=== PATIENT | female | born 1935 | race Caucasian/White ===

== ENCOUNTER 2017-08-17 11:30 | Inpatient (IN) | payer MEDICARE ==
[2017-08-17 12:38] VITALS: BMI 21.6
--- NOTE | 2017-08-19 15:05 | HP ---
DATE OF ADMISSION: 08/23/2017 HISTORY OF PRESENT ILLNESS: The patient is an 82-year-old female, who underwent in situ screw fixati on of a right femoral neck fracture approximately 18 months ago. She initially did well, but subsequ ently developed progressive right hip and groin pain, which is worse with ambulation. She has develo ped progressive signs of avascular necrosis and collapse of the femoral head with degenerative change s of the hip joint, and is admitted at this time for total hip replacement. PAST MEDICAL HISTORY: Please see the old chart. Patient had a previous aortic aneurysm stenting wit hin the past [address] Vasquez without further problems. She does have a history of COPD. She did obtain cardiac clearance from Dr. Carney prior to her aneurysm surgery and also obtained pulmonar y clearance from Dr. Mullins. CURRENT MEDICATIONS: Include Anoro Ellipta and albuterol. She does smoke a half-pack a day. ALLERGIES: She has no known allergies. She lives with her daughter. FAMILY HISTORY/SOCIAL HISTORY/REVIEW OF SYSTEMS: Otherwise unremarkable. PHYSICAL EXAMINATION: GENERAL: Reveals an elderly, thin, somewhat chronically ill-appearing female. HEENT: Unremarkable. NECK: Supple. CHEST: Clear. HEART: Regular rate and rhythm. ABDOMEN: Soft, nontender. RECTAL/GENITAL EXAMS: Deferred. EXTREMITIES: Pertinent findings related to the right hip. There is tenderness of the anterior hip. There is a healed lateral incision. There is a right antalgic gait with a walker. She has decrease d range of motion of the right hip and groin pain with internal rotation. Leg lengths are equal. Ne urovascular exam is intact. LABORATORY AND X-RAY FINDINGS: X-rays of the right hip reveal previous femoral neck fracture fixed w ith 3 cannulated screws. The fracture appears to be healed. There is collapse of the femoral head, which has been progressive with degenerative changes of the hip joint. IMPRESSION: 1. Avascular necrosis of right hip, status post right femoral neck fracture with secondary degenerat elen arthritis. 2. History of chronic obstructive pulmonary disease. 3. History of aortic aneurysm stenting. PLAN: Conversion of previous surgery to right total hip replacement with removal of previous hardwar e. The nature of the surgery, length of recovery, and potential complications such as infection, los s of motion, incomplete relief, neurovascular injury, thromboembolic phenomenon, leg length discrepan cy, possible transfusion, and need for revision have been discussed in detail with the patient and he r daughter.
[2017-08-23] MEDS ORDERED: Tranexamic Acid 1,000 MG/100 ML BAG ONE ×2 (10:09→15:10)
[2017-08-23] MEDS ORDERED: CEFAZOLIN/Water 2 GM/20 ML SYRINGE ONE (10:09)
[2017-08-23] MEDS ORDERED: Tranexamic Acid 1,000 MG in Sodium Chloride 0.9% 100 ML IVPB SCH ×2 (10:52→15:00)
[2017-08-23] MEDS ORDERED: Zolpidem Tartrate 5 MG TAB PO PRN ×2 (10:52→11:45)
[2017-08-23] MEDS ORDERED: Acetaminophen 325 MG TAB PO PRN (10:52)
[2017-08-23] MEDS ORDERED: traMADol HCl 50 MG TAB PO PRN ×4 (10:52→11:45)
[2017-08-23] MEDS ORDERED: PROVENTIL INHALER 6.7 G (200 INHALATIONS) INH PRN (10:52)
[2017-08-23] MEDS ORDERED: Fentanyl 100 MCG/2 ML VIAL SLOW IVP PRN (10:52)
[2017-08-23] MEDS ORDERED: Promethazine HCl 25 MG/ML VIAL SLOW IVP PRN (10:52)
[2017-08-23] MEDS ORDERED: Ondansetron HCl/PF 4 MG/2 ML Vial IVP PRN ×2 (10:52→11:45)
[2017-08-23] MEDS ORDERED: diphenhydrAMINE 25 MG CAP PO PRN ×2 (10:52→11:45)
[2017-08-23] MEDS ORDERED: Midazolam HCl 2 mg/2 ml Vial ONE (10:57)
[2017-08-23] MEDS ORDERED: Albuterol Sulfate 2.5 mg/3 ml Neb ONE (11:25)
[2017-08-23] MEDS ORDERED: Acetaminophen 1,000 MG in Premix Bag 1 BAG IVPB PRN (11:37)
[2017-08-23] MEDS ORDERED: Naloxone HCl 0.4 mg/ml Vial IV PRN (11:45)
[2017-08-23] MEDS ORDERED: diphenhydrAMINE 50 MG/ML VIAL IVP PRN (11:45)
[2017-08-23] MEDS ORDERED: Naloxone HCl 0.4 mg/ml Vial IVP PRN (11:45)
[2017-08-23] MEDS ORDERED: Promethazine HCl 25 MG/ML VIAL IM PRN (11:45)
[2017-08-23] MEDS ORDERED: diphenhydrAMINE 50 MG/ML VIAL IM PRN (11:45)
[2017-08-23] MEDS ORDERED: Fentanyl/Bupivacaine 250 ML in Premix Bag 1 BAG EPIDURAL SCH (11:45)
[2017-08-23] MEDS ORDERED: Bupivacaine 0.25% 10 ML VIAL EPIDURAL PRN (11:45)
[2017-08-23] MEDS ORDERED: Promethazine HCl 25 MG SUPP PR PRN (11:45)
[2017-08-23] MEDS ORDERED: Eucerin (Mineral Oil/Petrolatum,White) 30 gm Jar TOP PRN (11:45)
[2017-08-23] MEDS ORDERED: HYDROcodone/Acetaminophen 5/325 mg Tablet PO PRN ×4 (11:45→14:55)
[2017-08-23] MEDS: Ketorolac Tromethamine 30 MG/ML VIAL IVP SCH ×3 (12:00→23:29)
[2017-08-23] MEDS ORDERED: Bupivacaine 0.25% HCL 30 ML VIAL ONE (12:19)
[2017-08-23] MEDS ORDERED: Ketorolac Tromethamine 30 MG/ML VIAL IVP SCH (14:00)
[2017-08-23] MEDS ORDERED: Glycopyrrolate 0.2 MG/ML 5 ML SYRINGE ONE (14:44)
[2017-08-23] MEDS ORDERED: ePHEDrine/0.9% NaCl/PF SYRINGE 50 mg/10 ml ONE (14:44)
[2017-08-23] MEDS ORDERED: Ondansetron HCl/PF 4 MG/2 ML Vial ONE (14:44)
[2017-08-23] MEDS ORDERED: Propofol 200 MG/20 ML VIAL ONE (14:44)
[2017-08-23] MEDS ORDERED: Lidocaine 1% PF 5 ML VIAL ONE (14:44)
[2017-08-23] MEDS ORDERED: Dexamethasone 20 MG/5 ML VIAL ONE (14:44)
[2017-08-23] MEDS ORDERED: Fentanyl/Bupivacaine 250 ML EPIDURAL ONE (15:24)
[2017-08-23] MEDS: Sodium Chloride 0.9% 1,000 ML IV SCH ×3 (16:06→23:29)
--- NOTE | 2017-08-23 16:12 | RAD ---
TWO VIEWS RIGHT HIP: Date: 08-23-17 History: Post op total hip. Comparison: 10-27-16 FINDINGS: There has been interval post-surgical changes related to placement of right total hip prostheses. No hardware complication is seen. Surgical clips overlie the right aspect of the pelvis. There is a sten t overlying the region of the right iliac vessels. Subcutaneous emphysema is seen about the right hip . IMPRESSION: Post-surgical changes related to recent placement of right total hip prosthesis. POS: ESTELA
--- NOTE | 2017-08-23 16:42 | OP ---
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 OPERATIVE PROCEDURE: Conversion of previous surgery to hybrid right total hip arthroplasty (press fit acetabulum with a cemented femoral stem). SURGEON: Yomi Chan M.D. LIFE ENRICHMENT MANAGER: Chito Rojo PA-C. ANESTHESIA: General via endotracheal tube augmented with indwelling epidural. COMPONENTS USED: [employer] Trident PSL press-fit 50 mm acetabular shell with a 36 mm 10-degree polyethylene fixed bearing insert, and an Accolade 132-degree cemented size 5 hip stem. ESTIMATED BLOOD LOSS: 250 mL. FINDINGS: Impacted valgus malunion right hip with retained 7.3 stainless steel cannulated screws. DRAINS: None. SPECIMENS: None. COMPLICATIONS: None. COUNTS: Correct. INDICATIONS FOR SURGERY: Ms. Diehl is an 82-year-old white female that had a hip fracture treated with cannulated screw fixation approximately 18 months ago. She has had progressive right hip, groin and thigh pain amplified with standing and walking and elected to proceed with total hip arthroplasty as definitive treatment of her malunion. PROCEDURE IN DETAIL: After informed consent was obtained in the preoperative holding area, the patient was taken to the operative suite where general anesthesia was induced. The patient was then positioned in the lateral decubitus position. The hip was then prepped and draped in usual sterile fashion. The patient received preoperative antibiotics. Prior to incision, time-out was called and all members of the surgical team agreed upon site, surgeon, and patient. After this, a longitudinal incision was made directly over the trochanter, noted by palpation extending 2 fingerbreadths above and below the trochanter. The deeper subcutaneous layer was undermined with Bovie electrocautery. The iliotibial band was encountered and incised sharply and the plane below this was developed bluntly. A Charnley retractor was placed to hold this opened. The lateral aspect of the trochanter and the abductor muscles were encountered and then reflected anteriorly off the trochanter using Bovie electrocautery. Once this was completed, the anterior capsule was then encountered and identified and copious capsulotomy was carried out, exposing the femoral neck and head. Dislocation maneuver was then performed and an in situ provisional neck cut was then made using the oscillating saw. Attention was then turned to acetabular preparation and sequential reaming was carried out up to the appropriate diameter and a trial was then malleted into place with good firm resistance and no pullout. The permanent acetabular shell was then malleted squarely into place, as was the appropriate liner. Once completed , the wound was copiously irrigated and attention was then turned to femoral preparation. Flexion and external rotation was performed of the exposed thigh and femoral elevators were then placed at the proximal aspect of the wound. Canal finder was used to establish the length of the canal and sequential reaming was carried out, followed by broaching. Once the appropriate stability was established with the trial broaches with both flexion, extension and rotational stability, we did trial with neutral and 2 mm offset incremental necks. Once the appropriate size was decided upon, with good stability noted with flexion, extension, internal and external rotation and shuck being negative , we removed the femoral trial broach and malletted into place the permanent prosthesis with good firm fit, which was also stable to rotation. Once established, the canal was irrigated and prepped for cementation. After placing the cement restrictor, the canal was filled and pressurized for implantation. The implant was placed and held through the cureing process. excess cement was removed. Relocation maneuver was performed. Again, the hip felt very stable to flexion, extension, internal and external rotation. Leg lengths appeared near anatomic clinically and we were quite happy with prosthesis placement. Copious irrigation was then carried out through the entirety of the wound. Primary closure of the abductors was accomplished with interrupted #2 Vicryl [id number] stitches and the IT band was then closed with interrupted #2 Vicryl, oversewn with a #2 running barbed Quill stitch. Subcutaneous fascia was closed with running barbed Quill stitch and a subcuticular Monocryl barbed Quill stitch was used for skin closure and augmented with skin cement. A sterile dressing was applied. The procedure was terminated without any complication. All counts were correct. The patient was awakened in the operative suite and taken to the recovery room in stable condition. GINNA
[2017-08-23] MEDS: CEFAZOLIN/Water 2 GM/20 ML SYRINGE SLOW IVP SCH (18:07)
[2017-08-23] MEDS: Brimonidine Tartrate 0.2% Ophth Soln 5 ml Bottle L EYE SCH (21:17)
[2017-08-23] MEDS: Senokot S 8.6-50 MG TAB PO SCH (21:21)
[2017-08-23] MEDS: Timolol 0.5% Ophth Soln 5 ml Bottle L EYE SCH (21:22)
[2017-08-23] MEDS ORDERED: Vancomycin HCl 1 GM in Premix Bag 1 BAG IVPB SCH (23:00)
[2017-08-24] MEDS: CEFAZOLIN/Water 2 GM/20 ML SYRINGE SLOW IVP SCH (02:09)
[2017-08-24] MEDS: Ketorolac Tromethamine 30 MG/ML VIAL IVP SCH ×3 (05:12→18:34)
[2017-08-24 05:36] LABS: Hemoglobin 8.6 g/dL (12.0-16.0); Mean Corpuscular HGB CONC 32.3 g/dL (32.0-36.0); Mean Corpuscular Hemoglobin 31.5 pg (27.0-31.0); Mean Corpuscular Volume 97.6 fl (81.0-99.0); Mean Platelet Volume 7.1 fL (7.4-10.4); Platelet Count 256 thou/uL (130-400); RBC Distribution Width 14.7 % (11.5-14.5); Red Blood Cell (RBC) Count 2.73 mill/uL (4.20-5.40); White Blood Cell (WBC) Count 9.7 thou/uL (4.8-10.8)
--- NOTE | 2017-08-24 06:09 | CON ---
DATE OF CONSULTATION: 08/23/2017 CONSULTING PHYSICIAN: Dr. Yomi Chan. REASON FOR CONSULTATION: Medical management post right total hip revision. HISTORY OF PRESENT ILLNESS: Ms. Bautista is a pleasant 82-year-old female with history of COPD and skin cancer who fell and fractured her hip in 01/2016. At that time, she had a hemiarthroplasty repa ir, but has had nonunion and failure. She is admitted postop day 0 on 08/23/2017 from a right hip co nversion from millie to full arthroplasty. We are consulted postoperatively for medical management. She did well intraoperatively, no noted complications. Postoperatively, she slept well. No fevers o r chills. No nausea, vomiting, diarrhea, constipation. Pain is fairly well controlled. PAST MEDICAL HISTORY: 1. COPD. 2. Skin cancer. PAST SURGICAL HISTORY: 1. Right hip revision today 08/23/2017. 2. Aortic aneurysm stenting by Dr. Vasquez a few months ago. 3. Right hip repair after a fall with fracture in 01/2016. HOME MEDICATIONS: 1. Ibuprofen p.r.n. 2. Aspirin 81 mg daily. 3. Albuterol MDI 2 puffs p.o. q.4h. p.r.n. 4. Combigan 0.2/0.5% 1 drop to left eye b.i.d. 5. Anoro Ellipta 62.5/25 one puff q.a.m. 6. Cholecalciferol 1000 mg p.o. daily. 7. Calcium carbonate 600 mg daily. ALLERGIES: METOPROLOL. FAMILY HISTORY: Negative for carotid bruits, autoimmune dysfunction. SOCIAL HISTORY: Significant for about a half pack of cigarettes per day. She lives with her jordan lombardo. No history of alcohol use or IV drug use. REVIEW OF SYSTEMS: A 10 point review of systems was performed, negative for all systems except as pe r HPI. PHYSICAL EXAMINATION: VITAL SIGNS: Temperature 98.4, pulse 74, blood pressure 122/63, respiratory 16, satting 92% on room air. GENERAL: She is sleeping soundly, but easily arousable. She is in no acute distress. HEENT: Normocephalic, atraumatic. Pupils equal, reactive bilaterally. Mucous membranes moist. No visible lesion or thrush. NECK: Supple, without lymphadenopathy, JVD, thyromegaly. LUNGS: Clear. CARDIOVASCULAR: Normal S1, S2. No S3, S4. No murmurs or rubs. ABDOMEN: Soft, nontender, nondistended, no mass. No organomegaly. EXTREMITIES: No cyanosis or clubbing. Trace edema to bilateral extremities. SKIN: Warm, moist, and well perfused. Left hip incision dressing is clean, dry, and intact without strike through. MUSCULOSKELETAL: Otherwise unremarkable. Normal to inspection without any inflamed joints or palpab le effusions. NEUROLOGIC: Cranial nerves II-XII grossly intact. She has 5/5 strength and no focal deficits. Norm al speech pattern. LABORATORY DATA: On 08/17/2017 shows sodium 138, potassium 3.7, chloride 100, bicarbonate 26, BUN 14 , creatinine 0.86 and glucose 139, calcium 10.0. INR is 1.0. CBC showed a white count of 10.1, hemo globin 13.9, hematocrit 41.4, platelet count 349,000. Urinalysis unremarkable. ASSESSMENT AND PLAN: 1. Failure of a hemiarthroplasty, status post right hip revision and conversion from millie to total h ip arthroplasty. The patient is now postop day #1 technically today on 08/24/2017. Likely will go h ome later today. Medically, she is doing well. I will continue home medications and she can follow up with her regular doctor. Primary care physician is Dr. Khari Chatterjee. Clearing mobile phone salesperson, Dr. Nakia Carney. It Account Manager was Dr. Pete Mullins. Thank you very much for this consult. I will follow along with you for the duration of her stay.
[2017-08-24] MEDS: Sodium Chloride 0.9% 1,000 ML IV SCH (07:16)
[2017-08-24] MEDS: Senokot S 8.6-50 MG TAB PO SCH ×2 (08:30→20:40)
[2017-08-24] MEDS: Calcium Carbonate 600 MG TAB PO SCH (08:30)
[2017-08-24] MEDS: Ferrous Gluconate 324 MG TAB PO SCH ×2 (08:34→20:40)
[2017-08-24] MEDS: Multivitamin W/ Minerals 1 TAB PO SCH (08:34)
[2017-08-24] MEDS: Timolol 0.5% Ophth Soln 5 ml Bottle L EYE SCH ×3 (08:37→20:41)
[2017-08-24] MEDS: Brimonidine Tartrate 0.2% Ophth Soln 5 ml Bottle L EYE SCH ×2 (08:38→20:41)
[2017-08-25] MEDS: Ketorolac Tromethamine 30 MG/ML VIAL IVP SCH ×2 (00:10→05:23)
[2017-08-25] MEDS: Sodium Chloride 0.9% 1,000 ML IV SCH ×2 (01:17→12:50)
[2017-08-25 05:45] LABS: Hemoglobin 8.6 g/dL (12.0-16.0); Mean Corpuscular HGB CONC 32.4 g/dL (32.0-36.0); Mean Corpuscular Volume 98.5 fl (81.0-99.0); Mean Platelet Volume 7.8 fL (7.4-10.4); Platelet Count 244 thou/uL (130-400); RBC Distribution Width 14.9 % (11.5-14.5); White Blood Cell (WBC) Count 10.3 thou/uL (4.8-10.8)
[2017-08-25] MEDS: Multivitamin W/ Minerals 1 TAB PO SCH (09:34)
[2017-08-25] MEDS: Calcium Carbonate 600 MG TAB PO SCH (09:34)
[2017-08-25] MEDS: Ferrous Gluconate 324 MG TAB PO SCH (09:34)
[2017-08-25] MEDS: Brimonidine Tartrate 0.2% Ophth Soln 5 ml Bottle L EYE SCH (09:34)
[2017-08-25] MEDS: Senokot S 8.6-50 MG TAB PO SCH (09:35)
[2017-08-25] MEDS: Timolol 0.5% Ophth Soln 5 ml Bottle L EYE SCH (09:36)
--- NOTE | 2017-08-25 11:34 | PDOC.PN ---
- Subjective Encounter Start Date: 08/25/17 Encounter Start Time: 08:20 Subjective: breathing well, no wheezing -: is amb with PT - Objective MAR Reviewed: Yes Vital Signs & Weight: Vital Signs (12 hours) Temp Pulse Resp BP Pulse Ox 08/25/17 09:36 96 08/25/17 09:01 97.7 F 96 16 129/66 92 L 08/25/17 07:51 90 L 08/25/17 07:49 85 16 90 L 08/25/17 04:25 98.6 F 91 19 152/63 H 97 08/25/17 00:00 98.4 F 90 19 120/56 L Weight Admit Weight 122 lb Weight 122 lb I&O: 08/24/17 08/25/17 08/26/17 06:59 06:59 06:59 Intake Total 1800 1280 Output Total 1200 1350 Balance 600 -70 Result Diagrams: 08/25/17 05:17 Phys Exam - Physical Examination HEENT: PERRLA, moist MMs Neck: no JVD, supple Respiratory: no wheezing, no rales Cardiovascular: RRR, no significant murmur Gastrointestinal: soft, non-tender, positive bowel sounds Musculoskeletal: no edema, pulses present Neurological: non-focal, moves all 4 limbs Psychiatric: A&O x 3 Dx/Plan (1) COPD (chronic obstructive pulmonary disease) Status: Chronic Qualifiers: COPD type: chronic bronchitis Chronic bronchitis type: unspecified Qualified Code(s): J42 - Unspecified chronic bronchitis (2) Status post total hip replacement, right Code(s): Z96.641 - PRESENCE OF RIGHT ARTIFICIAL HIP JOINT Status: Acute (3) Postoperative anemia Code(s): D64.9 - ANEMIA, UNSPECIFIED Status: Acute (4) Osteoarthritis Code(s): M19.90 - UNSPECIFIED OSTEOARTHRITIS, UNSPECIFIED SITE Status: Chronic Qualifiers: Osteoarthritis location: multiple joints - Plan hemostable -: is likely going to rehab today per patient -: on asp bid for post hip surgery dvt prophylaxis -: pain control per ortho -: continue nebs, i.spirometry * . Review of Systems - Medications/Allergies Allergies/Adverse Reactions: Allergies Allergy/AdvReac Type Severity Reaction Status Date / Time metoprolol Allergy Intermediate LEGS Verified 03/26/17 09:57 SWELLED UP Medications: Current Medications Acetaminophen (Tylenol) 650 mg PO Q4H PRN PRN Reason: MARTEL/ T > 101F; Mild Pain (1-3) Hydrocodone Bitart/Acetaminophen (Pelsor 5/325) 1 tab PO Q4H PRN PRN Reason: Mild Pain 0-3 Hydrocodone Bitart/Acetaminophen (Pelsor 5/325) 2 tab PO Q4H PRN PRN Reason: For Moderate Pain 4-6 Albuterol Sulfate (Proventil Hfa) 2 puff INH Q4H PRN PRN Reason: SOB &/or Wheezing Albuterol/Ipratropium (Duoneb) 3 ml NEB Q6HR [facility] Last Admin: 08/25/17 07:49 Dose: 3 ml Aspirin (Aspirin Chewable) 81 mg PO BID [facility] Last Admin: 08/25/17 09:34 Dose: 81 mg Brimonidine Tartrate (Alphagan 0.2% Ophth Soln) 1 drop L EYE BID [facility] Last Admin: 08/25/17 09:34 Dose: 1 drp Bupivacaine HCl (Marcaine) 5 ml EPIDURAL ONE PRN PRN Reason: UNCONTROLLED PAIN Stop: 08/26/17 11:46 Calcium Carbonate (Caltrate) 600 mg PO DAILY [facility] Last Admin: 08/25/17 09:34 Dose: 600 mg Cholecalciferol (Vitamin D3) 1,000 units PO DAILY [facility] Last Admin: 08/25/17 09:34 Dose: 1,000 units Diphenhydramine HCl (Benadryl) 25 mg PO Q6H PRN PRN Reason: Itching Diphenhydramine HCl (Benadryl) 25 mg PO Q3H PRN PRN Reason: Itching Diphenhydramine HCl (Benadryl) 25 mg IM Q3H PRN PRN Reason: Itching Diphenhydramine HCl (Benadryl) 25 mg IVP Q3H PRN PRN Reason: Itching Ferrous Gluconate (Fergon) 324 mg PO BID [facility] Last Admin: 08/25/17 09:34 Dose: 324 mg Sodium Chloride (Normal Saline 0.9%) 1,000 mls @ 100 mls/hr IV .Q10H [facility] Last Admin: 08/25/17 01:17 Dose: Not Given Fentanyl Citrate 250 ml/ (Device) 250 mls @ 6 mls/hr EPIDURAL INF [facility] Last Admin: 08/25/17 07:25 Dose: 250 mls Iron/Minerals/Multivitamins (Theragran M) 1 tab PO DAILY [facility] Last Admin: 08/25/17 09:34 Dose: 1 tab Mineral Oil/White Petrolatum (Eucerin Cream) 0 gm TOP PRN PRN PRN Reason: Itching Naloxone HCl (Narcan) 0.2 mg IV Q5MIN PRN PRN Reason: RR <=8 OR OBTUNDED/UNAROUSABLE Naloxone HCl (Narcan) 0.1 mg IVP Q15MIN PRN PRN Reason: URINARY RETENTION Ondansetron HCl (Zofran) 4 mg IVP Q6H PRN PRN Reason: Nausea/Vomiting Last Admin: 08/24/17 15:12 Dose: 4 mg Ondansetron HCl (Zofran) 4 mg IVP Q6H PRN PRN Reason: Nausea/Vomiting Promethazine HCl (Phenergan) 12.5 mg SLOW IVP Q4H PRN PRN Reason: Nausea/Vomiting Promethazine HCl (Phenergan) 12.5 mg IM Q4H PRN PRN Reason: Nausea Promethazine HCl (Phenergan Suppository) 25 mg NH Q4H PRN PRN Reason: Nausea/Vomiting Senna/Docusate Sodium (Senokot S) 2 tab PO BID [facility] Last Admin: 08/25/17 09:35 Dose: 2 tab Sodium Chloride (Flush - Normal Saline) 10 ml IVF PRN PRN PRN Reason: Saline Flush Last Admin: 08/24/17 15:14 Dose: 10 ml Timolol Maleate (Timoptic 0.5% [facility]) 1 drop L EYE BID [facility] Last Admin: 08/25/17 09:36 Dose: Not Given Tramadol HCl (Ultram) 50 mg PO Q6H PRN PRN Reason: Mild Pain 1-3 Tramadol HCl (Ultram) 100 mg PO Q6H PRN PRN Reason: Moderate Pain 4-6 Zolpidem Tartrate (Ambien) 5 mg PO HSPRN PRN PRN Reason: Insomnia Zolpidem Tartrate (Ambien) 5 mg PO HSPRN PRN PRN Reason: Insomnia
[2017-08-25 12:52] VITALS: BP 149/74; TEMP 98.7
== END 2017-08-25 15:50 | DRG 470 ==
LOC: SURG A 08-23 08:37 → SJJU 08-23 17:25
PROVIDERS: ADMIT Orthopaedic Surgery; ATTEND Orthopaedic Surgery
PROC: 0SR9029 Replacement of Right Hip Joint with Metal on Polyethylene Synthetic Substitute, Cemented, Open Approach (ICD-10-PCS; principal; 2017-08-23)
PROC: 3E0T3BZ Introduction of Anesthetic Agent into Peripheral Nerves and Plexi, Percutaneous Approach (ICD-10-PCS; 2017-08-23)
DX: M87.251 Osteonecrosis due to previous trauma, right femur (principal); D64.9 Anemia, unspecified; S72.001P Fracture of unspecified part of neck of right femur, subsequent encounter for closed fracture with malunion; M16.7 Other unilateral secondary osteoarthritis of hip; I71.4 Abdominal aortic aneurysm, without rupture; Z95.818 Presence of other cardiac implants and grafts; F17.210 Nicotine dependence, cigarettes, uncomplicated; Z79.82 Long term (current) use of aspirin; Z88.8 Allergy status to other drugs, medicaments and biological substances; J42 Unspecified chronic bronchitis
CPT/HCPCS: 36415; 85027; 94640; C1713; C1776; G8978-GP-CL; G8979-GP-CI; G8987-GO-CK; G8988-GO-CI; J1100; J1885; J2001; J2250; J2405; J2704; J3010; J3370; J7611; J7620; S0020

== ENCOUNTER 2017-08-17 12:23 | Outpatient (CLI) | payer MEDICARE ==
[2017-08-17 14:26] LABS: Bilirubin Negative (Negative); Blood, Urine Trace (Negative); Clarity CLEAR (Clear); Glucose, Urine (Dipstick) Negative (Negative); Leukocyte Negative (Negative); Nitrite Negative (Negative); Protein, Urine (Dipstick) 30 mg/dL (Neg-Trace); Specific Gravity, Urine 1.019 (1.002-1.036); Urobilinogen 0.2 mg/dL (0.2-1.0)
[2017-08-17 14:28] LABS: Bacteria/HPF 1+ HPF (None Seen); Hyaline Casts/LPF 0-3 HYALINE CAST LPF (0-3 Hyaline); Pathc Cast-AUWi Flag 0.13 (0-2.49); WBC/HPF 0-3 HPF (0-3)
[2017-08-17 14:29] LABS: Hemoglobin 13.9 g/dL (12.0-16.0); Mean Corpuscular HGB CONC 33.5 g/dL (32.0-36.0); Mean Corpuscular Hemoglobin 32.7 pg (27.0-31.0); Mean Corpuscular Volume 97.4 fl (81.0-99.0); Mean Platelet Volume 7.6 fL (7.4-10.4); Platelet Count 349 thou/uL (130-400); RBC Distribution Width 14.7 % (11.5-14.5); Red Blood Cell (RBC) Count 4.25 mill/uL (4.20-5.40); White Blood Cell (WBC) Count 10.1 thou/uL (4.8-10.8)
[2017-08-17 14:32] LABS: Prothrombin Time 13.1 SEC (12.0-14.7)
[2017-08-17 14:39] LABS: Anion Gap 16 mmol/L (10-20); BUN (Urea Nitrogen) 14 mg/dL (9.8-20.1); Calc. Creatinine Clearance 0 mL/min (70-130); Carbon Dioxide 26 mmol/L (23-31); Chloride 100 mmol/L (98-107); Estimated GFR-MDRD 63; Glucose 139 mg/dL (83-110); Potassium 3.7 mmol/L (3.5-5.1); Sodium 138 mmol/L (136-145)
--- NOTE | 2017-08-19 00:50 | EKG ---
Test Reason : Blood Pressure : / mmHG Vent. Rate : 074 BPM Atrial Rate : 074 BPM P-R Int : 120 ms QRS Dur : 072 ms QT Int : 384 ms P-R-T Axes : 062 075 -07 degrees QTc Int : 426 ms Sinus rhythm with Premature atrial complexes Minimal voltage criteria for LVH, may be normal variant Abnormal ECG When compared with ECG of 26-MAR-2017 15:12, Premature atrial complexes are now Present T wave inversion now evident in Inferior leads Confirmed by RENO WILLIAMSON, SJesús ([id number]) on 08/19/2017 12:49:58 AM Referred By: NIKA Confirmed By:DR. Derian BOJORQUEZ MD
== END 2017-08-17 12:24 | disposition home or self-care (01) ==
LOC: LABBT 12:23
PROVIDERS: ATTEND Orthopaedic Surgery
DX: Z01.818 Encounter for other preprocedural examination (principal); M87.051 Idiopathic aseptic necrosis of right femur
CPT/HCPCS: 80048; 81001; 85027; 85610; 86850; 86900; 86901; 87081; 87086; 93005; 93010

== ENCOUNTER 2017-11-23 12:51 | Outpatient (CLI) | payer MEDICARE ==
--- NOTE | 2017-11-23 14:42 | CT ---
CT ANGIOGRAM ABDOMEN AND PELVIS WITH AND WITHOUT CONTRAST: HISTORY: Abdominal aortic aneurysm. Surgical repair in December 2016. COMPARISON: CT angiogram on 03/23/2017. TECHNIQUE: CT of the abdomen and pelvis was performed prior to and after the intravenous administration of contr ast, and 3D rendering was provided. FINDINGS: On the noncontrast examination, there is extensive atherosclerotic plaque throughout the aortoiliac s ystem. There is atrophy of the right kidney relative to the left with poor enhancement. The right k idney is likely being perfused by collateral vessels. No normal right renal artery is seen coming of f the post contrast study. There was adequate perfusion of the right kidney on the pre-treatment elia dy from December 2016. The aortobifemoral graft adequate excludes the aortic aneurysm. Using the same plane of reference fr om the prior examination, the aneurysmal sac is unchanged in size. No interval enlargement. There i s no evidence of an Endo leak. 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 The superior mesenteric artery is patent. There are no dilated loops of large or small bowel in the abdomen or pelvis. No significant free flu id. Mild spondylosis of the lumbar spine. The gallbladder is unremarkable. No hyperenhancing liver lesion. IMPRESSION: 1. Unchanged size of the excluded aortic aneurysm of the aortobifemoral graft. 2. Poor enhancement of the right renal artery with 1.5 cm of the proximal right renal artery not opa cified. Likely, the right renal artery is being fed by collateral vessels. 3. 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 4. No evidence of Endo leak. POS: ESTELA
[2017-11-23] MEDS ORDERED: Iopamidol 370 76% 100 ML VIAL ONE (14:49)
== END 2017-11-23 12:52 | disposition home or self-care (01) ==
LOC: CT 12:51
PROVIDERS: ATTEND Thoracic Surgery (Cardiothoracic Vascular Surgery)
DX: I71.4 Abdominal aortic aneurysm, without rupture (principal); I77.4 Celiac artery compression syndrome
CPT/HCPCS: 74174; 82565

== ENCOUNTER 2018-12-01 13:40 | Outpatient (CLI) | payer MEDICARE ==
[~2018-12-01 13:40] MED LIST: ISOVUE-370 76%-LOCM 1 ML ONE
--- NOTE | 2018-12-01 15:55 | CT ---
CONTRAST ENHANCED CTA ABDOMEN, PELVIS AND BOTH RIGHT AND LEFT RUNOFF: 12/01/18 2D and 3D reconstructed images performed on an independent 3D workstation. HISTORY: Abdominal aortic aneurysm repaired in 2017. Contrast enhanced CTA of abdomen and pelvis and bilateral runoffs demonstrates the lung bases to be u nremarkable. The liver and spleen are unremarkable. Numerous gallstones seen. The pancreas is unremarkable. Adrenal glands unremarkable. The right kidney is atrophied and the left kidney is unremarkable. The left renal artery is visualize d. Both renal arteries appear to be partially covered by the aortic stent graft. The aortic stent gra ft covers right and left renal arteries and appears to extend upwards all the way to the inferior asp ect of the superior mesenteric artery. The right renal artery appears to have occluded while the left renal artery, although partially obscured is patent. Flow is seen to the left kidney. The infrarenal abdominal aortic aneurysm is completely covered and no evidence of leakage seen. Flow is seen into the right and left common iliac arteries. The right common iliac artery appears to be pa tent. Flow is seen in the right external iliac artery and common femoral artery. Flow is seen predomi nantly into the right femora profunda. Some flow is seen into the proximal most aspect of the right superficial femoral artery. The right superficial femoral artery; however, is completely occluded. N umerous profunda collaterals reconstitute the right popliteal artery which is partially calcified. Th e right anterior tibial artery is small and occludes in the mid-calf. The right common peroneal arter y is patent although partially calcified. Flow seen in the right posterior tibial artery and right pe roneal arteries. LEFT LOWER EXTREMITY: Flow is seen from the patent and stented left common iliac artery into the left external iliac artery and left common femoral artery. Good flow is seen in the left femora profunda and superficial femora l arteries. The left SSA, although partially diseased is patent all the way to the left popliteal art lawson. Flow is seen in the left anterior tibial artery all the way to the dorsalis pedis. The left post erior tibial artery appears to be occluded. Flow is seen in the left peroneal artery all the way to t he left ankle. Some collaterals do reconstitute the left distal most aspect of the posterior tibial a rtery in the left foot. IMPRESSION: 1. Abdominal aortic stent graft in good position distally. The proximal aspect covers the right and left renal arteries. 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 No evidence of endovascular stent graft leak seen in the abdominal aortic a neurysm. 2. Complete occlusion of the right superficial femoral artery with right lower extremity poplite al reconstitution via right femora profunda collaterals. Two vessel runoff seen in the right lower ex tremity. 3. Left lower extremity demonstrates fairly good flow although some atherosclerotic plaque in th e left SFA. Flow however is seen from the stented left common iliac artery all the way to the left fo ot as described above. 4. No evidence of endovascular stent graft leak. POS: [facility]
== END 2018-12-01 13:41 | disposition home or self-care (01) ==
LOC: BICCT 13:40
PROVIDERS: ATTEND Thoracic Surgery (Cardiothoracic Vascular Surgery)
DX: I71.4 Abdominal aortic aneurysm, without rupture (principal); N28.0 Ischemia and infarction of kidney; I70.201 Unspecified atherosclerosis of native arteries of extremities, right leg; Z95.828 Presence of other vascular implants and grafts
CPT/HCPCS: 75635; 82565; Q9966

== ENCOUNTER 2018-12-06 13:21 | Outpatient (CLI) | payer MEDICARE ==
--- NOTE | 2018-12-06 13:39 | RAD ---
Exam: Chest 2 views HISTORY:Dyspnea Comparison: 06/17/2017 FINDINGS: Lungs: Hyperinflated lungs with diffuse interstitial and a mild superimposed reticulonodular componen t of opacification Cardiac silhouette:Mild enlargement Pulmonary vessels: Slightly engorgement, centrally Pleural Spaces: Minimal blunting of posterior costophrenic sulci, bilaterally Pneumothorax: None Vascular graft is seen overlying the abdominal aorta. Osseous abnormalities: None of acuity. IMPRESSION: 1. COPD 2. Diffuse interstitial reticulonodular opacities. Findings indicate chronic interstitial lung diseas e. An acute superimposed atypical inflammatory process is not excluded. Correlate with clinical assessment.
== END 2018-12-06 13:22 | disposition home or self-care (01) ==
LOC: RAD 13:21
PROVIDERS: ATTEND Internal Medicine
DX: R06.00 Dyspnea, unspecified (principal); R91.8 Other nonspecific abnormal finding of lung field; J44.9 Chronic obstructive pulmonary disease, unspecified
CPT/HCPCS: 71046

== ENCOUNTER 2019-07-13 15:25 | Inpatient (IN) | payer MEDICARE ==
[~2019-07-13 15:25] MED LIST changes: -ISOVUE-370 76%-LOCM 1 ML ONE; +Iopamidol-370 76% 500 ML 1 ML ONE
--- NOTE | 2019-07-13 15:57 | CT ---
CT head noncontrast HISTORY: Altered mental status. FINDINGS: There is no evidence of acute intracranial hemorrhage or infarct. Mild chronic ischemic sma ll vessel disease within the periventricular white matter of each cerebral hemisphere. 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 There is no mass effect or shif t of midline structures. Chronic sclerotic appearance of the left mastoid air cells. Other paranasal sinuses remain well aerated. IMPRESSION: Chronic-type findings as detailed above. No acute intracranial abnormalities are demonstr ated.
[2019-07-13 16:15] LABS: #Eosinphils 0.1 thou/uL (0.0-0.7); #Lymphocytes 1.8 thou/uL (1.20-3.40); #Monocytes 0.9 thou/uL (0.11-0.59); #Neutrophils 5.1 thou/uL (1.40-6.50); %Basophils 0.6 % (0.0-1.0); %Eosinophils 1.6 % (0.0-10.0); %Lymphocytes 22.1 % (21.0-51.0); %Neutrophils 64.7 % (42.0-75.0); Hemoglobin 14.4 g/dL (12.0-16.0); Mean Corpuscular HGB CONC 33.7 g/dL (32.0-36.0); Mean Corpuscular Hemoglobin 33.5 pg (27.0-31.0); Mean Corpuscular Volume 99.4 fL (78.0-98.0); Mean Platelet Volume 7.5 fL (7.4-10.4); Platelet Count 287 thou/uL (130-400); RBC Distribution Width 13.7 % (11.5-14.5); White Blood Cell (WBC) Count 7.9 thou/uL (4.8-10.8)
--- NOTE | 2019-07-13 16:27 | RAD ---
CHEST ONE VIEW: 07/13/19 HISTORY: Altered mental status. COMPARISON: Chest radiograph 07/06/19. FINDINGS: There are radiopacities projecting over the right shoulder likely extrinsic to the patient. Heart siz e is upper limits of normal. No airspace consolidation, pneumothorax or effusion. Mild aortic calcifi cations. IMPRESSION: No acute intrathoracic abnormality. POS: [facility]
[2019-07-13 16:28] LABS: PTT 30.4 SEC (22.9-36.1); Prothrombin Time 13.1 SEC (12.0-14.7)
[2019-07-13 16:30] LABS: ALT (SGPT) 16 U/L (8-55); AST (SGOT) 22 U/L (5-34); Albumin 4.2 g/dL (3.4-4.8); Alkaline Phosphatase 62 U/L (40-110); Anion Gap 14 mmol/L (10-20); BUN (Urea Nitrogen) 23 mg/dL (9.8-20.1); Bilirubin, Total 0.3 mg/dL (0.2-1.2); CK (CPK) 93 U/L (29-168); Calc. Creatinine Clearance 0 mL/min (70-130); Carbon Dioxide 24 mmol/L (23-31); Chloride 105 mmol/L (98-107); Estimated GFR-MDRD 60; Globulin 2.9 g/dL (2.4-3.5); Glucose 91 mg/dL (83-110); Magnesium 2.2 mg/dL (1.6-2.6); Potassium 4.3 mmol/L (3.5-5.1); Protein, Total 7.1 g/dL (6.0-8.3); Sodium 139 mmol/L (136-145)
--- NOTE | 2019-07-13 16:46 | CT ---
CTA CHEST AND ABDOMEN (AORTA) WITH IV CONTRAST AND 3D POSTPROCESSIN07/13/19 HISTORY: Abdominal aortic aneurysm with repair. Patient complains of fatigue and right sided facial droop. COMPARISON: Comparison made with exam of 12/01/18. The aortobifemoral graft is patent. The infrarenal abdominal aortic aneurysm is stable measuring abou t 4.1 x 4.3 cm. No intimal flap is seen to suggest aortic dissection. No pleural or pericardial effus ions are seen. There are emphysematous changes in the lung flower without pneumothoraces, focal areas of consolidation, or lung masses. The right kidney is atrophic. The proximal aspect of the aortoiliac stent covers the right and left r enal arteries. The left renal artery is visualized with good flow. There is good flow in the celiac a ccess and the SMA. The right renal artery appears occluded similar to the previous exam. No endoleak is seen in the abdominal aortic aneurysm/graft. No free air or free fluid is noted in the abdomen. IMPRESSION: 1. No evidence of aortic dissection. 2. Stable infrarenal abdominal aortic aneurysmal sac without evidence of endovascular stent toma t leak. POS: [facility]
[2019-07-13 18:47] LABS: Bilirubin Negative (Negative); Blood, Urine Negative (Negative); Clarity Clear (Clear); Glucose, Urine (Dipstick) Normal (Negative); Leukocyte Negative Leu/uL (Negative); Nitrite Negative (Negative); Protein, Urine (Dipstick) Negative (Neg-Trace); Urobilinogen Normal mg/dL (Less than 2)
[2019-07-13] MEDS ORDERED: hydrALAZINE 20 MG/ML VIAL SLOW IVP PRN (19:55)
[2019-07-13] MEDS ORDERED: Aspirin Chewable 81 MG TAB ONE (19:56)
[2019-07-13] MEDS ORDERED: Atenolol 50 MG TAB PO SCH (20:15)
[2019-07-14] MEDS: Atorvastatin Calcium 40 MG TAB PO SCH ×2 (00:43→22:03)
--- NOTE | 2019-07-14 01:52 | HP ---
REASON FOR ADMISSION: Left facial droop. HISTORY OF PRESENT ILLNESS: This is an 83-year-old female patient, who presented to the ER for left-sided facial droop and slurred speech. History going back to the night before her presentation. The patient has been feeling weak for the past couple of weeks and her primary care physician has been doing a workup and recently checked her thyroid function test in order to explain why she is generally weak, unable to even lift dishes, but yesterday the patient started having a facial droop and slurred speech, but no focal weakness in her upper or lower extremity, although she is generally weak on the right side more than on the left side. The patient did not lose consciousness. Did not have any fevers. Did not have any chills. In the emergency room, she continues to have a left facial droop, although improved a bit. Her daughter is at the bedside providing me with most of the information and she tells me that the patient has been losing weight and has been having early satiety. She eats a little bit and she gets full very quickly. PAST MEDICAL HISTORY: 1. High blood pressure. 2. COPD. 3. Skin cancer, status post treatment. 4. Aortic abdominal aneurysm, status post repair. SOCIAL HISTORY: She smokes 6-8 cigarettes a day. Drinks 1 gin and tonic on a daily basis, but is not dependent on alcohol. FAMILY HISTORY: Unknown. She is adopted. ALLERGIES: METOPROLOL. REVIEW OF SYSTEMS: Positive for weight loss. Other systems reviewed, except for the above-mentioned, found to be negative. PHYSICAL EXAMINATION: GENERAL: She is awake, alert, oriented, does not appear in distress. VITAL SIGNS: Her blood pressure is 200/90. She is afebrile. Her pulse ox is above 90%. HEENT: Head is nontraumatic, normocephalic. Pupils equal, reactive. Extraocular movements are intact. Nonicteric sclerae. Well injected conjunctivae. Oral mucosa normal. Nasal mucosa normal. NECK: Supple. No adenopathy. No murmur. Thyroid is not palpable. Trachea is midline. No supraclavicular adenopathy. HEART: S1 and S2 regular. No murmur. No gallop. No friction rubs noted. No displacement of PMI. LUNGS: Clear to auscultation bilaterally. No wheezes, rhonchi, or crackles. ABDOMEN: Bowel sounds are positive. Nontender abdomen. No hepatosplenomegaly. EXTREMITIES: No lower extremity edema. No cyanosis noted. NEUROLOGIC: She does have a left facial droop. She does have slurred speech. She does have motor weakness in her right upper and right lower extremity compared to the left side. She is able to lift against resistance, but it is slightly weaker than the left side. LABORATORY DATA: Her blood work shows WBC 7.9, hemoglobin 14.4, platelets of 287. Her INR is 1. Her sodium is 139, potassium 4.3, creatinine 0.9. Troponin less than 0.01. Urinalysis does not show any evidence of infection. TSH is 0.1905, T4 is 9.7. CT of the abdomen with IV contrast and CT of the chest shows no evidence for aortic dissection, stable infrarenal abdominal aortic aneurysm sac without evidence of endovascular stent graft leak. CT of the brain shows no evidence of acute intracranial hemorrhage. Mild chronic ischemic small vessel disease with periventricular white matter, old lacunar infarct in the anterior limb of the left internal capsule and left thalamus. Chest x-ray shows no acute intrathoracic abnormality. ASSESSMENT AND PLAN: This is an 83-year-old female patient, presenting with left facial droop and slurred speech compatible with a stroke. 1. Neurology: The patient will be admitted to stroke unit. She will be started on statin. We will consult Neurology to undergo an MRI of the brain, carotid Doppler, and echocardiogram. 2. GI: The patient has been losing weight and experiencing early satiety. I consulted Gastroenterology and I am planning on contacting the radiologist to see if he can re-read the CT of the abdomen and focus on the internal organs since it was primarily done for the vasculature, but I will see if he can look into the stomach and intestines trying to explain why she has this early satiety. 3. Endocrinology: The patient does have low TSH, but normal T4 and T3. I am checking a free T4. Also doing an ultrasound of the thyroid. 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 Based on the studies, we will see what we need to do about that. 4. For deep venous thrombosis prophylaxis, she will be on Lovenox. 5. For chronic obstructive pulmonary disease, she will be on nebulizer treatment. 6. I did discuss the code status with her and with her daughter and she wishes to be a full code. Job ID: [id number]
[2019-07-14 02:43] VITALS: BMI 24.0
--- NOTE | 2019-07-14 08:39 | ULT ---
US Carotid Doppler STANDARD History: Facial droop Comparison: None. Findings: Real-time grayscale, color, and spectral analysis of the extracranial carotid and vertebral arteries was performed. No elevated peak systolic velocities within the internal carotid arteries. Antegrade flow both verteb ral arteries. Moderate atherosclerotic plaque both proximal internal carotid arteries. Impression: No hemodynamically significant stenosis.
--- NOTE | 2019-07-14 09:35 | ULT ---
THYROID ULTRASOUND: Date: 07/14/19 HISTORY: Low thyroid function tests. FINDINGS: Real-time imaging of the right and left lobes of the gland were performed. Right lobe measures 1.6 x 1.8 x 4.5 cm. Left lobe measures 1.9 x 2.0 x 4.2 cm. Within the right lobe, more in the upper pole re gion, is a complex cystic lesion measuring 8.0 x 12.0 mm. There are other smaller complex cysts also identified. On the right side, there is a complex cyst measuring 1.0 x 2.2 cm. Margins are smooth. Le ramandeep is wider than tall. No microcalcifications. This lesion would correspond to a TI-RADS 2 lesion. No FNA recommended. IMPRESSION: Bilateral complex cystic thyroid nodules. POS: [facility]
--- NOTE | 2019-07-14 10:05 | MRI ---
MRI BRAIN NONCONTRAST: DATE: 07/14/2019 HISTORY: 83-year-old female with acute stroke symptoms. Altered mental status. FINDINGS: There is no obstructive hydrocephalus. There is no midline shift or any other evidence of mass effect . There is no extra-axial fluid collection. There is a moderate degree of T2-hyperintensities in the cerebral white matter consistent with chronic ischemic white matter changes due to microvascular atherosclerosis. There is no evidence of recent hemorrhage. There is a small patchy faint slightly less than one center focus of mild T2 hyperintensity in the right side of the upper compa with restric alison diffusion. There are multiple small-tiny old lacunar infarctions in bilateral basal ganglia and left thalamus. IMPRESSION: 1) acute or subacute lacunar infarction in the right compa. 2) multiple old lacunar infarctions in bilateral basal ganglia and left thalamus. 3) moderate chronic ischemic white matter changes. 4) no acute hemorrhage or mass effect.
--- NOTE | 2019-07-14 10:26 | PDOC.HOSPP ---
- Subjective Subjective: She looks better today, but continues to have a facial droop. - Objective Vital Signs & Weight: Vital Signs (12 hours) Temp Pulse Resp BP Pulse Ox 07/14/19 07:46 98 F 62 16 181/74 H 93 L 07/14/19 03:56 98 F 53 L 16 138/63 94 L Weight Weight 135 lb 12.8 oz I&O: 07/13/19 07/14/19 07/15/19 06:59 06:59 06:59 Intake Total 300 Balance 300 Result Diagrams: 07/13/19 15:55 07/13/19 15:55 Additional Labs: Accuchecks 07/13/19 15:41 POC Glucose 91 Hospitalist ROS - Medication Medications: Active Medications Generic Name Dose Route Start Last Admin Trade Name Freq PRN Reason Stop Dose Admin Atorvastatin Calcium 40 mg 07/13/19 21:00 07/14/19 00:43 Lipitor PO Not Given HS BRETT - Exam General Appearance: NAD, awake alert Eye: PERRL ENT: normocephalic atraumatic Neck: supple, symmetric Heart: RRR, no murmur Respiratory: CTAB, no wheezes, no rales Gastrointestinal: soft, non-tender, non-distended Extremities: no cyanosis, no clubbing Neurological: speech deficit (she does have a left facial droop, she does have a slurred speech.) Musculoskeletal: normal tone Hosp A/P - Plan Neuro---she seems to have had a stroke, MRI report is still pending.She is on full dose ASA, on statin, will continue with permissive hypertension for the next 24 h. carotid doppler does not show stenosis. Neuro consult pending. Endocrino--subclinical hyperthyroidism, with bilateral cystic thyroid nodules, TI-RADS2, no FNA recommended, this needs to be followed with her PCP as an outpatient, her PCP already in the process of working her up for thyroid disease , free T4 is normal. GI--early satiety, and decrease caloric intake, I did ask GI to evaluate. yesterday she did report chronic early satiety but denied it today. COPD--seems stable, she has PRN nebs. DVT px with SCDs
[2019-07-14] MEDS: Aspirin 325 mg Enteric Coated Tablet PO SCH (10:39)
[2019-07-14] MEDS: Enoxaparin Sodium 40 MG/0.4 ML SYRINGE SC SCH (10:40)
--- NOTE | 2019-07-14 17:05 | CON ---
DATE OF CONSULTATION: 07/14/2019 CHIEF COMPLAINT: Acute stroke. HISTORY OF PRESENT ILLNESS: The patient had left-sided facial droop and slurred speech and was brought to the hospital yesterday. The patient was suspected to have aortic dissection as well, and due to patient's loss of weight and also difficulty with her GI symptoms and CT for aortic dissection was negative, she was admitted for possible stroke workup. She did not have any weakness, numbness, or vision changes. She walks with a cane at baseline due to right hip recent replacement. PREVIOUS MEDICAL HISTORY: Hypertension, COPD, skin cancer, abdominal aortic aneurysm status post repair. SOCIAL HISTORY: Smokes 6 to 8 cigarettes per day and drinks socially which is what she told me, but in the chart, it is written that the patient drinks one gin and tonic on a daily basis. FAMILY HISTORY: She is adopted. ALLERGIES: SHE IS ALLERGIC TO METOPROLOL. REVIEW OF SYSTEMS: CARDIAC: Negative for chest pain. GI: Positive for easy satiety. GENERAL: Positive for weight loss. NEUROLOGICAL: Positive for slurred speech and facial droop. ORTHOPEDIC: Positive for right hip replacement. OPHTHALMOLOGIC: Negative for any vision problems. LUNGS: Positive for COPD. LABORATORY WORKUP: White count 7.9, hemoglobin 14.4, hematocrit 42.7, and platelet count 287. Chemistry; sodium 139, potassium 4.3, chloride 105, bicarbonate 24, BUN 23, creatinine 0.9, glucose 91. Lipase profile and cholesterol are within normal limits and liver functions were also within normal limits. Her MRI of the brain did show that she had a small stroke in the right, acute or subacute lacunar infarcts in the right compa, multiple old lacunes in the bilateral basal ganglia and left thalamus. Moderate chronic white matter ischemic changes. No acute hemorrhage noted and her carotid Doppler is negative for any vaso-occlusive disease and thyroid ultrasound was also completed and that was not positive for bilateral complex thyroid nodules and her echocardiogram was completed. No abnormalities other than impaired relaxation compatible with diastolic dysfunction was noted and EF is 55% to 60%. PHYSICAL EXAMINATION: GENERAL APPEARANCE: Well-built, well-nourished lady. CHEST: Positive for rhonchi. CARDIAC: S1, S2 heard. No murmurs. ABDOMEN: Soft. Neurologic: Higher intellectual functions. Normal orientation to time, place, and person. Appropriate conversation. Cranial nerves 2 through 12; she has slight asymmetry of the eyelids, which I think is baseline and she had mild facial droop on the left side. Normal extraocular movements. Pupils are 2 mm, reactive to light bilaterally. Normal hearing to finger rub bilaterally. Normal sensation of face bilaterally. Tongue midline. No atrophy noted. Normal elevation of palate bilaterally. Motor exam; bulk normal, tone normal. Strength 4/5 on the right side and left side is 5/5. The strength exam on the right side could be secondary to her shoulder and hip problems as well and it was mostly proximal weakness rather than distal weakness. She also had arthritic changes in the right upper extremity and rest of the exam on the left side, her strength was normal, deep tendon reflexes 2+ throughout, and sensory normal to touch bilaterally, and cerebellar normal [id number] and [id number]. IMPRESSION: The patient is an 83-year-old lady with history of hypertension and she had a history of aortic aneurysm repair as well. Currently that seems to be fairly stable. At this time, she is admitted for slurred speech and facial droop and no weakness was described. Her examination shows mild facial droop on the left side and also proximal muscle weakness in the right upper and lower extremities, which is likely orthopedic and rest of the exam was normal. She did have hyperreflexia and one needs to look at whether she has any C-spine disease. This is not urgent. This can be done as outpatient. Her diagnosis is most consistent with acute TIA. TREATMENT RECOMMENDATIONS: Please increase her dose of aspirin to 325 mg once daily and I will also request CT angiogram of the head and neck to complete evaluation of her posterior circulation as well, so we do not have to revisit this issue in the future. Please call me if you have any further questions. I will follow up the patient with you tomorrow. Job ID: [id number]
--- NOTE | 2019-07-14 18:19 | CT ---
CTA OF THE HEAD WITH AND WITHOUT IV CONTRAST AND 3-D REFORMATTED IMAGING. CTA OF THE NECK WITH IV CONTRAST AND 3-D REFORMATTED IMAGING. INDICATION: CVA; generalized weakness COMPARISON: MR the brain dated July 14, 2019 and a carotid ultrasound dated July 14, 2019 FINDINGS: CTA OF THE HEAD WITH AND WITHOUT CONTRAST: NONCONTRAST CT OF BRAIN: Hemorrhage: None [place]/Infarction: Patient's known acute right paramedian compa infarct is not well seen. Chronic is chemic change as detailed in the recent MR the brain performed today. Midline Shift: None. Hydrocephalus: None. Skull and Extracranial Soft tissues: Normal. CTA OF THE BRAIN: Right ICA: Moderate calcifications but no definite hemodynamically significant stenosis. Right MCA: Patent. Right JULISSA: Patent. ACOM: Patent. Left ICA: Moderate calcifications without definite hemodynamically significant stenosis. Left MCA: Patent. Left JULISSA: Patent. PCOMs: The left DIRECTOR VOICE has a origin. Vertebral arteries: Patent. Basilar Artery: Patent. compliance analyst: Left DIRECTOR VOICE is a origin. Incidentals: None. CTA OF THE NECK WITH CONTRAST: Right CCA: Patent. Right ICA: Patent. Right Subclavian: Patent. Right Vertebral Artery: Patent. Left CCA: Patent. Left ICA: Patent. Left Subclavian: Patent. Left Vertebral Artery: Patent. Aerodigestive tract: There is a 1 cm hypodensity within the left palatine tonsil which is nonspecifi c. Parotids/Submandibular/Thyroid glands: Normal. Lymph nodes: No pathologically enlarged lymph nodes. Lung Apices: Emphysema. Pleural-parenchymal scarring. Bones: There is scattered degenerative and osteoarthritic change present. Incidentals: None. IMPRESSION: 1. No hemodynamically significant stenosis, occlusion or aneurysmal formation. 2. 1 cm hypodense lesion in the left palatine tonsils is nonspecific. Recommend correlation for any s ymptoms and signs of tonsillitis or possibly a left tonsillar abscess. If there is no concern for acute infectious abnormalities, a nonemergent ENT follow-up is recommended.
[2019-07-14] MEDS ORDERED: hydrALAZINE 20 MG/ML VIAL SLOW IVP PRN (21:44)
--- NOTE | 2019-07-14 21:51 | PDOC.EVN ---
Event Note - Event Note Event Note: Nurse for Ms Bautista called to say that the daughter the patient lives with tested positive for the flu today. I started Tamiflu 30mg daily which is the prophylaxic dose. Patient has no current symptoms of the flu but should be tested if this changes.
[2019-07-14] MEDS ORDERED: Amlodipine 10 MG TAB PO SCH (22:00)
[2019-07-14] MEDS ORDERED: Oseltamivir 6 MG/ML ORAL SUSP PO SCH (22:00)
--- NOTE | 2019-07-15 00:47 | CON ---
DATE OF CONSULTATION: 07/14/2019 REQUESTING PHYSICIAN: Dr. Irwin. REASON FOR CONSULTATION: Early satiety and weight loss. HISTORY OF PRESENT ILLNESS: Ms. Shanita Bautista is an 83-year-old woman who was admitted to the hospital yesterday after presenting to the ER with left-sided facial droop and dysarthria over the prior day. She had been having some recent generalized weakness, but yesterday had acute onset of the facial droop and dysarthria. She has had cranial imaging, which did show a small recent infarct. She has been evaluated by Neurology and diagnosed with TIA. Her symptoms are felt to be improving by both the patient and other providers. She still does have a bit of left facial droop evident. Her mentation is good. During all this evaluation, she has reported that she has been having some early satiety off and on over the past year. She has lost maybe 10-12 pounds over the past year slowly. She denies any heartburn or dysphagia, abdominal pain, nausea, vomiting, change in bowel habits, diarrhea, constipation, melena or hematochezia with all of this. She has no significant prior gastrointestinal history. Her last colonoscopy was about 10 years ago as she recalls and she believes it was normal. At this point, she is receiving full-dose aspirin and is allowed to have permissive hypertension. PAST MEDICAL HISTORY: Hypertension, COPD, skin cancer status post treatment, abdominal aortic aneurysm status post repair. ALLERGIES: METOPROLOL. MEDICATIONS: 1. DuoNebs p.r.n. 2. Aspirin 325 mg daily. 3. Lipitor. 4. Lovenox 40 mg subcu daily. FAMILY HISTORY: Unknown, she is adopted. SOCIAL HISTORY: She smokes 6-8 cigarettes per day. Drinks 1 gin and tonic on a daily basis. REVIEW OF SYSTEMS: Full review of systems including constitutional, head, eyes, ears, nose, throat, GI, , cardiovascular, respiratory, musculoskeletal, neurologic systems is negative except as noted in the HPI. PHYSICAL EXAMINATION: VITAL SIGNS: Temperature 98.8, pulse 55, blood pressure 129/64 and 93% oxygen saturation on room air. GENERAL: An 83-year-old woman sitting up in bed comfortably, in no distress. SKIN: No jaundice, no rashes were palpable. EYES: No scleral icterus. Extraocular movements intact. ENT: Mucous membranes moist. No oral lesions. LYMPH: No submandibular or supraclavicular lymphadenopathy. THYROID: Nontender to palpation. HEART: Regular rate and rhythm. LUNGS: Clear to auscultation bilaterally. ABDOMEN: Soft, bowel sounds present. Nontender to palpation. EXTREMITIES: No peripheral edema. VESSELS: Radial pulse 2+ bilaterally. NEUROLOGIC: The patient does have some left-sided facial droop. She follows commands. Mentation is normal. LABORATORY STUDIES: Hemoglobin 14.4, WBC 7.9, platelets 287. INR 1.0. Sodium 139, potassium 4.3, BUN 23, creatinine 0.90, lactic acid 1.1, glucose 91, calcium 10.0, total bilirubin 0.3, alkaline phosphatase 62, AST 22, ALT 16. Troponin negative. Free T4 of 1.16, triglycerides 125, total cholesterol 169, albumin 4.2. Urinalysis negative. IMAGING STUDIES: Brain MRI demonstrates acute or subacute lacunar infarction in the right compa. Multiple old lacunar infarctions in the bilateral basal ganglia and left thalamus. Moderate chronic ischemic white matter changes. No acute hemorrhage or mass effect. CT angiogram of the head and neck demonstrates chronic ischemic changes, but no hemodynamically significant stenosis, occlusion or aneurysm. There was a 1 cm hypodense lesion in the left palatine tonsil, which is nonspecific. ASSESSMENT/PLAN: 1. Early satiety. 2. Weight loss, modest over the past year. 3. Transient ischemic attack with persistent mild left facial droop. 4. Left palatine tonsillar lesion, nonspecific. 5. The patient does have this early satiety complaint, but this is really peripheral to her acute presentation with transient ischemic attack. It is really not too bothersome to her and there are no other associated GI symptoms. In the context of acute transient ischemic attack , I would not recommend pursuing any aggressive diagnostic workup along these lines right now. I did give her my information and we will plan to have my office contact her for outpatient followup in the next month or two, if she wants to further discuss these symptoms. This is what the patient desires as well. 6. Note, the 1 cm left palatine tonsillar lesion on her CT. We would leave workup of this to the primary service, but ENT evaluation or opinion would probably be a good idea. 7. GI will sign off, but please call back anytime with questions or concerns. Job ID: [id number]
[2019-07-15] MEDS: Aspirin 325 mg Enteric Coated Tablet PO SCH (09:04)
[2019-07-15] MEDS: Lisinopril 5 MG TAB PO SCH ×2 (09:04→22:09)
[2019-07-15] MEDS: Amlodipine 10 MG TAB PO SCH (09:04)
[2019-07-15] MEDS: Enoxaparin Sodium 40 MG/0.4 ML SYRINGE SC SCH (09:04)
[2019-07-15] MEDS: Oseltamivir 6 MG/ML ORAL SUSP PO SCH (09:05)
--- NOTE | 2019-07-15 13:50 | PDOC.HOSPP ---
- Subjective Subjective: Seen and examined. Patient's tells me that she is overall improving. Patient still notices facial asymmetry/grouping. Patient does not notice any weakness in her arms or legs. Patient does not notice any dysarthria. This a.m. patient is feeling good, however I was page in the afternoon that the patient had a fall in the bathroom. Ordered x-ray to rule out fracture. Patient is not having any hip pain, no bruising to the area. - Objective Vital Signs & Weight: Vital Signs (12 hours) Temp Pulse Resp BP BP Pulse Ox 07/15/19 11:57 99.4 F 72 16 165/76 H 92 L 07/15/19 09:04 66 144/70 H 07/15/19 08:00 98.5 F 64 16 144/70 H 94 L 07/15/19 03:12 98.5 F 61 16 165/71 H 94 L Weight Admit Weight 135 lb 12.8 oz Weight 135 lb 12.8 oz I&O: 07/14/19 07/15/19 07/16/19 06:59 06:59 06:59 Intake Total 300 470 Balance 300 470 Result Diagrams: 07/13/19 15:55 07/13/19 15:55 Radiology Reviewed by me: Yes Hospitalist ROS - Review of Systems All other systems reviewed; all pertinent +/- noted in HPI/Subj - Medication Medications: Active Medications Generic Name Dose Route Start Last Admin Trade Name Freq PRN Reason Stop Dose Admin Amlodipine Besylate 10 mg 07/15/19 09:00 07/15/19 09:04 Norvasc PO 10 mg DAILY BRETT Administration Aspirin 325 mg 07/14/19 09:00 07/15/19 09:04 Ecotrin PO 325 mg DAILY BRETT Administration Atorvastatin Calcium 40 mg 07/13/19 21:00 07/14/19 22:03 Lipitor PO 40 mg HS BRETT Administration Enoxaparin Sodium 40 mg 07/14/19 09:00 07/15/19 09:04 Lovenox SC 40 mg 0900 BRETT Administration Lisinopril 5 mg 07/15/19 09:00 07/15/19 09:04 Zestril PO 5 mg BID BRETT Administration Oseltamivir Phosphate 30 mg 07/15/19 09:00 07/15/19 09:05 Tamiflu PO 30 mg DAILY BRETT Administration - Exam General Appearance: NAD, awake alert Eye: anicteric sclera ENT: normocephalic atraumatic, moist mucosa Neck: supple, symmetric, no lymphadenopathy Heart: RRR, no murmur, no gallops, no rubs Respiratory: CTAB, no wheezes, no rales, no ronchi, normal chest expansion, no tachypnea Gastrointestinal: soft, non-tender, non-distended, no palpable masses, no guarding, no rigidity Extremities: no edema Skin: no lesions, no rashes Neurological: normal sensation to touch, facial droop Musculoskeletal: generalized weakness Psychiatric: normal affect, normal behavior, A&O x 3 Hosp A/P (1) Acute CVA (cerebrovascular accident) Code(s): I63.9 - CEREBRAL INFARCTION, UNSPECIFIED Status: Acute (2) Facial droop due to acute cerebrovascular accident (CVA) Code(s): I63.9 - CEREBRAL INFARCTION, UNSPECIFIED; R29.810 - FACIAL WEAKNESS Status: Acute (3) Dysarthria Code(s): R47.1 - DYSARTHRIA AND ANARTHRIA Status: Acute (4) Fall Code(s): W19.XXXA - UNSPECIFIED FALL, INITIAL ENCOUNTER Status: Acute (5) Postoperative anemia Code(s): D64.9 - ANEMIA, UNSPECIFIED Status: Acute (6) Status post total hip replacement, right Code(s): Z96.641 - PRESENCE OF RIGHT ARTIFICIAL HIP JOINT Status: Acute (7) COPD (chronic obstructive pulmonary disease) Status: Chronic Qualifiers: COPD type: chronic bronchitis Chronic bronchitis type: unspecified Qualified Code(s): J42 - Unspecified chronic bronchitis (8) Osteoarthritis Code(s): M19.90 - UNSPECIFIED OSTEOARTHRITIS, UNSPECIFIED SITE Status: Chronic Qualifiers: Osteoarthritis location: multiple joints - Plan Plan: medical unit telemetry - stroke unit neurology consultation, recommendations appreciated G.I. consultation, recommendations appreciated - follow up in the outpatient setting MRI of the brain positive for acute CVA right compa/lacunar infarcts left-sided facial droop with dysarthria blood pressure is not controlled, patient on amlodipine, start CHRISTINE inhibitor for stroke prevention and better blood pressure control statin antiplatelet therapy echocardiogram noted 1 cm balloting tonsil lesion outpatient follow-up no clinical suspicion for infectious process. Patient is not having any sore throat or discomfort. Afebrile. Normal WBC count. Fall from standing, unwitnessed on 07/15/2019 bilateral hip x-ray to rule out acute fracture history of hip replacement Decreased appetite, early satiety, weight loss over the past several months G.I. recommend outpatient follow-up. May be and normal process of aging
--- NOTE | 2019-07-15 14:38 | RAD ---
Exam: Right hip 2 views: HISTORY: Injury from a ground-level fall COMPARISON: 08/23/2017 FINDINGS: Total right hip replacement changes without dislocation or periprostatic fracture. No evidence for fracture, dislocation, or other significant acute osseous abnormality. IMPRESSION: No significant acute process.
--- NOTE | 2019-07-15 14:39 | RAD ---
Exam: Left hip 2 views: HISTORY: Injury from a ground-level fall COMPARISON: 10/27/2016 FINDINGS: Bone demineralization. Mild hip joint degenerative change. Vascular calcifications. No evidence for fracture, dislocation, or other significant acute osseous abnormality. IMPRESSION: No significant acute process.
--- NOTE | 2019-07-15 14:54 | RAD ---
EXAM: Lumbar spine 3 views: HISTORY: Injury from a fall, concern for fracture COMPARISON: None FINDINGS: Severe bony demineralization. Minimal irregularity of the superior endplate in vertical height loss of L2 vertebral body which cert ainly could represent a compression fracture with without significant retropulsion. There are disc osteophytosis and facet arthrosis changes. No evidence for malalignment. No evidence for a bone lesion. IMPRESSION: Spondylosis. Bony demineralization. Irregularity of the superior endplate of L2 with very slight vertical height loss probably a mild com pression fracture.
[2019-07-15] MEDS ORDERED: HYDROcodone/Acetaminophen 5/325 mg Tablet PO PRN (15:11)
[2019-07-15] MEDS: Acetaminophen 500 MG TAB PO PRN ×2 (15:16→22:09)
--- NOTE | 2019-07-15 18:30 | PRG ---
DATE OF SERVICE: 07/15/2019 CHIEF COMPLAINT: Followup of stroke. INTERVAL HISTORY: The patient reports she is doing very well and is looking forward to going home tomorrow. Reports were reviewed and information about her CT angiogram being negative was conveyed to her. The patient will go home on aspirin along antiplatelet agent aspirin along with her anticoagulant. No additional recommendations for now. Her stroke workup has been completed. Job ID: [id number]
[2019-07-15] MEDS: Atorvastatin Calcium 40 MG TAB PO SCH (22:10)
--- NOTE | 2019-07-15 22:52 | PDOC.EVN ---
Event Note - Event Note Event Note: patient with 4 beats of Vtach tonight, bas met and magnesium level ordered.
[2019-07-15 23:30] LABS: Anion Gap 15 mmol/L (10-20); BUN (Urea Nitrogen) 17 mg/dL (9.8-20.1); Calc. Creatinine Clearance 46 mL/min (70-130); Carbon Dioxide 20 mmol/L (23-31); Chloride 105 mmol/L (98-107); Estimated GFR-MDRD 59; Glucose 111 mg/dL (83-110); Potassium 3.7 mmol/L (3.5-5.1); Sodium 136 mmol/L (136-145)
[2019-07-16] MEDS: Acetaminophen 500 MG TAB PO PRN ×2 (04:55→15:52)
[2019-07-16] MEDS: Amlodipine 10 MG TAB PO SCH (08:33)
[2019-07-16] MEDS: Aspirin 325 mg Enteric Coated Tablet PO SCH (08:33)
[2019-07-16] MEDS: Lisinopril 5 MG TAB PO SCH (08:33)
[2019-07-16] MEDS: Enoxaparin Sodium 40 MG/0.4 ML SYRINGE SC SCH (08:33)
[2019-07-16] MEDS: Oseltamivir 6 MG/ML ORAL SUSP PO SCH (15:36)
[2019-07-16 15:37] VITALS: BP 144/64; TEMP 98.8
--- NOTE | 2019-07-17 13:14 | DIS ---
DATE OF ADMISSION: 07/14/2019 DATE OF DISCHARGE: 07/16/2019 REASON FOR HOSPITALIZATION: Facial droop and dysarthria. SIGNIFICANT FINDINGS: The patient was found to have acute cerebrovascular accident affecting the right compa in addition to multiple old lacunar infarctions of bilateral basal ganglia and left thalamus. PROCEDURES PERFORMED AND TREATMENTS RENDERED: The patient was admitted to medical unit with telemetry-stroke unit for maximal medical therapy. The patient was seen and evaluated by Neurology and Internal Medicine physicians - please see full consultation notes, progress notes, and history and physical for full details. The patient had a thorough and appropriate workup for acute stroke including MRI of the brain, CT angiography of the head and neck, echocardiogram, and carotid ultrasound - please see full radiographic imaging reports for details. The patient was placed on appropriate stroke regimen to prevent future episodes of cerebrovascular accident. The patient worked with Physical Therapy and Occupational Therapy and as symptoms have improved/resolved since admission, she was recommended safe for discharge. Neurology recommended the patient safe for discharge on 07/15/2019 with close followup in the outpatient setting. SPECIFIC INSTRUCTIONS FOR THE PATIENT/FAMILY: 1. The patient is recommended to take all medications as directed, to be re-evaluated by primary care physician and Neurology in the outpatient clinic in the next 1 to 2 weeks. 2. The patient is recommended to follow up with primary care physician in the next 5 to 7 days. 3. The patient is recommended to follow up with Neurology in the next 1 to 2 weeks. 4. The patient is recommended to take control of her blood pressure and keep blood pressure readings in addition to a blood pressure log on her upcoming appointments with primary care physician and Neurology. 5. The patient is recommended to return to acute care hospital immediately if signs or symptoms return, worsen, or any other new symptoms occur. DISCHARGE MEDICATIONS: Please see full discharge medication list for details. 1. Amlodipine 10 mg one tablet p.o. daily. 2. Lisinopril 10 mg one tablet p.o. daily. 3. Atorvastatin 40 mg one tablet p.o. at bedtime. 4. Aspirin 325 mg one tablet p.o. daily. 5. Albuterol HFA inhaler two puffs p.o. q.4 hours p.r.n. shortness of breath. 6. Multivitamin one tablet p.o. daily. Greater than 35 minutes spent coordinating care and discharge process for this patient. Job ID: [id number]
== END 2019-07-16 17:00 | disposition home health service (06) | DRG 66 ==
LOC: ERS 15:25 → ERHOLD 18:52 → 2SE 07-14 01:19 → OBSVTOIN 07-14 13:48
PROVIDERS: ADMIT Internal Medicine; ATTEND Internal Medicine
DX: I63.9 Cerebral infarction, unspecified (principal); R47.1 Dysarthria and anarthria; R29.810 Facial weakness; R47.81 Slurred speech; E05.80 Other thyrotoxicosis without thyrotoxic crisis or storm; F17.210 Nicotine dependence, cigarettes, uncomplicated; M19.90 Unspecified osteoarthritis, unspecified site; Z96.641 Presence of right artificial hip joint; D64.9 Anemia, unspecified
CPT/HCPCS: 36415; 36416; 70450; 70496; 70498; 70551; 71045; 71275; 72100; 72191; 74175; 76536; 80048; 80053; 80061; 81003; 82550; 83605; 83735; 84238; 84436; 84439; 84445; 84480; 84484; 85025; 85610; 85730; 87086; 93005; 93306; 93880; J1650; Q9967

== ENCOUNTER 2019-07-22 14:49 | Inpatient (IN) | payer MEDICARE ==
--- NOTE | 2019-07-22 15:07 | CT ---
Exam: CT brain PROVIDED CLINICAL HISTORY: Altered mental status COMPARISON: 07/13/2019 FINDINGS: The ventricular system is normal in size and morphology. No evidence for intracranial hemorrhage or mass effect. The extracranial soft tissues and osseous structures demonstrate no evidence for an acute abnormality. Chronic microvascular ischemic changes are redemonstrated. IMPRESSION: No evidence for intracranial hemorrhage or mass effect. Findings communicated to Dr. Dill 3:03 PM .
[2019-07-22 15:41] LABS: #Basophils 0.1 thou/uL (0.0-0.2); #Eosinphils 0.1 thou/uL (0.0-0.7); #Lymphocytes 1.7 thou/uL (1.20-3.40); #Monocytes 0.7 thou/uL (0.11-0.59); #Neutrophils 6.8 thou/uL (1.40-6.50); %Basophils 0.6 % (0.0-1.0); %Eosinophils 0.8 % (0.0-10.0); %Lymphocytes 18.6 % (21.0-51.0); Hemoglobin 15.4 g/dL (12.0-16.0); Mean Corpuscular HGB CONC 34.4 g/dL (32.0-36.0); Mean Corpuscular Hemoglobin 33.6 pg (27.0-31.0); Mean Corpuscular Volume 97.7 fL (78.0-98.0); Mean Platelet Volume 7.5 fL (7.4-10.4); Platelet Count 331 thou/uL (130-400); RBC Distribution Width 13.3 % (11.5-14.5); Red Blood Cell (RBC) Count 4.58 mill/uL (4.20-5.40); White Blood Cell (WBC) Count 9.2 thou/uL (4.8-10.8)
[2019-07-22 15:48] LABS: PTT 32.4 SEC (22.9-36.1); Prothrombin Time 13.2 SEC (12.0-14.7)
[2019-07-22 15:55] LABS: ALT (SGPT) 24 U/L (8-55); AST (SGOT) 27 U/L (5-34); Albumin 4.6 g/dL (3.4-4.8); Alkaline Phosphatase 90 U/L (40-110); Anion Gap 16 mmol/L (10-20); BUN (Urea Nitrogen) 20 mg/dL (9.8-20.1); Bilirubin, Total 0.6 mg/dL (0.2-1.2); CK (CPK) 109 U/L (29-168); Calc. Creatinine Clearance 0 mL/min (70-130); Calcium 10.3 mg/dL (7.8-10.44); Carbon Dioxide 24 mmol/L (23-31); Chloride 101 mmol/L (98-107); Estimated GFR-MDRD 52; Globulin 3.9 g/dL (2.4-3.5); Glucose 95 mg/dL (83-110); Potassium 4.1 mmol/L (3.5-5.1); Protein, Total 8.5 g/dL (6.0-8.3); Sodium 137 mmol/L (136-145)
[2019-07-22 17:22] LABS: Bacteria/HPF 4+ HPF (None Seen); Bilirubin Negative (Negative); Blood, Urine Negative (Negative); Clarity Turbid (Clear); Glucose, Urine (Dipstick) Normal (Negative); Leukocyte 500 Leu/uL (Negative); Nitrite Negative (Negative); Protein, Urine (Dipstick) 20 mg/dL (Neg-Trace); WBC/HPF Greater than 50 HPF (0-3)
[2019-07-22 17:31] LABS: RBC/HPF 0-3 HPF (0-3)
[2019-07-22] MEDS ORDERED: cefTRIAXone\\ROCEPHIN 2 GM VIAL ONE (18:38)
--- NOTE | 2019-07-22 19:21 | RAD ---
PORTABLE CHEST: 07/22/19 HISTORY: Syncope. Expressive aphasia. Cough. COMPARISON: 07/13/19 study. Heart size is enlarged. Chronic interstitial lung changes are seen without focal infiltrates. IMPRESSION: Cardiomegaly with chronic appearing lung changes. POS: [facility]
[2019-07-22] MEDS ORDERED: HYDROcodone/Acetaminophen 7.5/325 mg Tablet PO PRN (19:39)
[2019-07-22] MEDS ORDERED: PROVENTIL INHALER 6.7 G (200 INHALATIONS) INH PRN (19:41)
[2019-07-22] MEDS: Atorvastatin Calcium 40 MG TAB PO SCH (23:05)
[2019-07-22 23:48] VITALS: BMI 21.8
[2019-07-23] MEDS: Sodium Chloride 0.9% 1,000 ML IV SCH ×2 (01:29→17:10)
[2019-07-23 05:12] LABS: #Eosinphils 0.2 thou/uL (0.0-0.7); #Lymphocytes 1.3 thou/uL (1.20-3.40); #Monocytes 0.7 thou/uL (0.11-0.59); #Neutrophils 5.3 thou/uL (1.40-6.50); %Basophils 0.4 % (0.0-1.0); %Eosinophils 2.5 % (0.0-10.0); %Lymphocytes 17.2 % (21.0-51.0); %Monocytes 9.7 % (0.0-10.0); %Neutrophils 70.1 % (42.0-75.0); Hemoglobin 13.2 g/dL (12.0-16.0); Mean Corpuscular HGB CONC 34.4 g/dL (32.0-36.0); Mean Corpuscular Hemoglobin 33.6 pg (27.0-31.0); Mean Corpuscular Volume 97.7 fL (78.0-98.0); Mean Platelet Volume 7.5 fL (7.4-10.4); Platelet Count 310 thou/uL (130-400); RBC Distribution Width 13.2 % (11.5-14.5); Red Blood Cell (RBC) Count 3.93 mill/uL (4.20-5.40); White Blood Cell (WBC) Count 7.6 thou/uL (4.8-10.8)
[2019-07-23 05:31] LABS: Anion Gap 13 mmol/L (10-20); BUN (Urea Nitrogen) 15 mg/dL (9.8-20.1); Calc. Creatinine Clearance 49 mL/min (70-130); Calcium 9.3 mg/dL (7.8-10.44); Carbon Dioxide 23 mmol/L (23-31); Chloride 106 mmol/L (98-107); Estimated GFR-MDRD 71; Glucose 89 mg/dL (83-110); Potassium 3.8 mmol/L (3.5-5.1); Sodium 138 mmol/L (136-145)
[2019-07-23] MEDS: hydrALAZINE 20 MG/ML VIAL SLOW IVP PRN (08:28)
[2019-07-23] MEDS: Enoxaparin Sodium 40 MG/0.4 ML SYRINGE SC SCH (08:28)
--- NOTE | 2019-07-23 10:53 | PDOC.HOSPP ---
- Subjective Encounter Date: 07/23/19 Encounter Time: 10:35 Subjective: f/u for AMS, recent R compa ischemic CVA with L facial droop. More somnolent and lethargic per family and nursing. - Objective Vital Signs & Weight: Vital Signs (12 hours) Temp Pulse Resp BP BP BP Pulse Ox 07/23/19 09:13 75 149/71 H 07/23/19 08:28 68 178/88 H 07/23/19 07:40 98.0 F 68 16 178/88 H 97 07/23/19 03:39 99 F 67 16 155/75 H 95 07/23/19 01:22 164/64 H 07/22/19 23:35 183/70 H 07/22/19 22:55 98.8 F 66 16 192/79 H 93 L Weight Weight 123 lb 6.4 oz I&O: 07/22/19 07/23/19 07/24/19 06:59 06:59 06:59 Intake Total 10 Balance 10 Result Diagrams: 07/23/19 04:38 07/23/19 04:38 Additional Labs: Accuchecks 07/22/19 15:10 POC Glucose 89 Microbiology 07/13/19 18:25 Urine clean catch Urine Culture - Final Radiology Reviewed by me: Yes (CT brain - no acute infarct, chronic ischemic changes) EKG Reviewed by me: Yes (Tele - SR) Hospitalist ROS - Medication Medications: Active Medications Generic Name Dose Route Start Last Admin Trade Name Freq PRN Reason Stop Dose Admin Atorvastatin Calcium 40 mg 07/22/19 21:00 07/22/19 23:05 Lipitor PO Not Given HS BRETT Enoxaparin Sodium 40 mg 07/23/19 09:00 07/23/19 08:28 Lovenox SC 40 mg 0900 BRETT Administration Hydralazine HCl 10 mg 07/23/19 00:55 07/23/19 08:28 Apresoline SLOW IVP 10 mg Q6H PRN Administration SBP > 150 Sodium Chloride 1,000 mls @ 75 mls/hr 07/22/19 19:45 07/23/19 01:29 Normal Saline 0.9% IV 1,000 mls .[id number] BRETT Administration - Exam General - other findings: lethargic, opens eyes and tracks to midline but not right Eye: PERRL, anicteric sclera ENT: normocephalic atraumatic, no oropharyngeal lesions Neck: supple, symmetric, no JVD, no thyromegaly Heart: RRR, no murmur, no gallops, no rubs, normal peripheral pulses Respiratory - other findings: coarse sounds bilat Gastrointestinal: soft, non-tender, non-distended, normal bowel sounds, no palpable masses Extremities: no cyanosis, no clubbing, no edema Skin: normal turgor, no lesions Neurological: facial droop Neurological - other findings: expressive aphasia Musculoskeletal: generalized weakness Psychiatric: oriented to person, flat affect, lethargic Hosp A/P (1) Acute metabolic encephalopathy Code(s): G93.41 - METABOLIC ENCEPHALOPATHY Status: Acute Plan: Multifactorial including UTI and potential new CVA, continue mgmt outlined below (2) UTI (urinary tract infection) Status: Acute Plan: Await Ucx results, increase Rocephin 2gm IV daily, continue IVF's (3) Expressive dysphasia Code(s): R47.02 - DYSPHASIA Status: Acute Plan: Secondary to CVA (4) Acute CVA (cerebrovascular accident) Code(s): I63.9 - CEREBRAL INFARCTION, UNSPECIFIED Status: Acute Plan: Recent R compa ischemic CVA, ? progression, check MRI brain today, stroke protocol, ASA/Lipitor (5) COPD (chronic obstructive pulmonary disease) Status: Chronic Qualifiers: COPD type: chronic bronchitis Chronic bronchitis type: unspecified Qualified Code(s): J42 - Unspecified chronic bronchitis Plan: Add Duonebs q4h, Dulera 2 puffs BID, smoking cessation, O2 prn (6) HTN (hypertension) Code(s): I10 - ESSENTIAL (PRIMARY) HYPERTENSION Status: Chronic Qualifiers: Hypertension type: essential hypertension Qualified Code(s): I10 - Essential (primary) hypertension Plan: Resume home Amlodipine, serial BP monitoring, permissive HTN per stroke protocol - Plan plan discussed w/ family, continue antibiotics, PT/OT, social media editor, speech therapy, respiratory therapy, DVT proph w/SCDs Continue supportive mgmt Increase Rocephin 2gm IV daily Continue IVF's Add Dulera 2 puffs BID MRI brain today Neurology consult Convert to inpt status Continue ASA/Lipitor
[2019-07-23] MEDS: Amlodipine 10 MG TAB PO SCH (11:41)
[2019-07-23] MEDS: Aspirin 325 mg Enteric Coated Tablet PO SCH (11:41)
[2019-07-23] MEDS: Lisinopril 10 MG TAB PO SCH (11:46)
[2019-07-23] MEDS: Multivitamin W/ Minerals 1 TAB PO SCH (11:47)
--- NOTE | 2019-07-23 13:23 | MRI ---
EXAM: MRI Brain W WO Con PROVIDED CLINICAL HISTORY: Altered mental status, stroke COMPARISON: MRI brain 07/14/2019, CT 07/22/2019 FINDINGS: The ventricular system appears unchanged in size and morphology. There is no evidence for intracrania l hemorrhage. There are new foci of restricted diffusion within the periventricular white matter bilaterally compatible with interval infarction restricted diffusion within the compa is redemonstrate d. Extensive chronic microvascular ischemic changes are again seen. There is no abnormal contrast enhancement identified. The extracranial soft tissues and calvarial marrow signal appear unremarkable other than partial fluid within the mastoid air cells. IMPRESSION: Interval lacunar infarctions involving the periventricular white matter bilaterally.
[2019-07-23] MEDS: cefTRIAXone\\ROCEPHIN 2 GM in Sodium Chloride 0.9% 100 ML IVPB SCH (17:35)
[2019-07-23] MEDS ORDERED: cefTRIAXone\\ROCEPHIN 1 GM in Sodium Chloride 0.9% 100 ML IVPB SCH (18:00)
[2019-07-23] MEDS: Mometasone/Formoterol 120 PUFF INHALER INH SCH (20:32)
[2019-07-23] MEDS: Atorvastatin Calcium 40 MG TAB PO SCH (21:47)
[2019-07-24] MEDS: Sodium Chloride 0.9% 1,000 ML IV SCH ×3 (06:33→17:57)
[2019-07-24] MEDS: Mometasone/Formoterol 120 PUFF INHALER INH SCH ×2 (08:22→19:25)
--- NOTE | 2019-07-24 08:27 | HP ---
PRESENTING COMPLAINT: Altered mental status. HISTORY OF PRESENT ILLNESS: Michele Diehl is an 83-year-old female with past medical history of hypertension since 3 years, recent admission for presumed CVA with no residual weakness, who was discharged one week ago, who has been in her usual state of health, ambulating with assistance, was at her normal baseline until this morning where the patient was noted to be less responsive with slightly slowness of her speech as well as new confusion. Family has brought her to the ED because of worry of recurrent stroke. In the ED, the patient was noted to be oriented to person alone. Workup was negative except for finding of UTI. She has been started on antibiotics. Family states her speech and attention have slightly improved. The patient denies any symptoms now. She is able to tell me her name and location. She denies any headache, dizziness, dysuria, or fever. PAST MEDICAL HISTORY: Hypertension, COPD, skin cancer, aortic abdominal aneurysm status post repair, recent CVA with no focal weakness on imaging. SOCIAL HISTORY: The patient resides in a community. History of tobacco and occasional alcohol intake. She denies any illicit drug use. At baseline, she ambulates independently at home, but with some assist with distance. FAMILY HISTORY: The patient is adopted. ALLERGIES: METOPROLOL. REVIEW OF SYSTEMS: All systems reviewed, x14 were negative except as mentioned above. PHYSICAL EXAMINATION: VITAL SIGNS: Current vitals; blood pressure of 154/86, respiratory rate of 18, temperature afebrile at 98.6, O2 saturation 95% on room air. GENERAL: Average built, elderly female, not in any distress. HEENT: Head is atraumatic, normocephalic. Pupils equal, reactive to light. NECK: No JVD. No carotid bruit. RESPIRATORY: Good air entry. No crepitation. CARDIOVASCULAR: S1 and S2. Rate and rhythm regular. Loud A2. GI: Abdomen full, soft. Bowel sounds positive. EXTREMITIES: No calf tenderness. No pedal edema. NEUROLOGICAL: The patient is awake. Slow speech, but intact. She is oriented to person, place, but missed time by a month, but aware of the year. No neurological focal motor deficits. LABORATORY DATA: WBC 9.2, platelets 331, hemoglobin 15. INR 1.0, PTT 32, BUN 20, creatinine 1.02. Calcium 10.3, CK 109, troponin less than 0.01. Urinalysis shows 4+ bacteria, greater than 50 wbc's. IMAGING DATA: Chest x-ray shows chronic lung changes with cardiomegaly, but no acute intrathoracic abnormality. Head CT negative for any acute findings, chronic ischemic vascular changes noted. EKG shows sinus arrhythmia at a rate of 76 beats per minute. No ST-segment changes. IMPRESSION: 1. Metabolic encephalopathy. 2. Urinary tract infection. 3. Hypertension. 4. Recent subacute lacunar infarct in the compa. PLAN: We will admit the patient to observation. We will start the patient on gentle IV hydration. Expect neuro symptoms to continue to improve with IV fluid and antibiotic. We will start Rocephin daily. Follow urine culture. We will continue home regimen of blood pressure medications, possibility of improvement with antibiotics discussed with family. If no improvement possibility of obtaining an MRI to further rule out repeat CVA will be considered. However, family indicated interest in not repeating further neuroimaging even if worsening symptoms. We will consult PT and OT. Family states the patient already has home PT and eager to take the patient home when cleared. CODE STATUS: The patient is a full code as per family. TIME SPENT: Total time spent in review of record, discussion with patient, and evaluation greater than 60 minutes. Job ID: [id number]
[2019-07-24] MEDS: Enoxaparin Sodium 40 MG/0.4 ML SYRINGE SC SCH (08:44)
--- NOTE | 2019-07-24 10:26 | PDOC.HOSPP ---
- Subjective Encounter Date: 07/24/19 Encounter Time: 10:25 Subjective: f/u for R compa ischemic CVA with L facial droop presenting with AMS, lethargy with MRI showing new bilat lacunar infarcts. Receiving ASA 325mg daily but currently NPO due to dysphagia. - Objective Vital Signs & Weight: Vital Signs (12 hours) Temp Pulse Resp BP Pulse Ox 07/24/19 08:21 85 14 95 07/24/19 07:18 98.0 F 86 16 164/71 H 94 L 07/24/19 03:04 98 F 88 20 172/85 H 95 07/24/19 00:17 87 158/75 H 07/23/19 23:04 98 F 90 20 170/59 H 98 Weight Weight 123 lb 6.4 oz I&O: 07/23/19 07/24/19 07/25/19 06:59 06:59 06:59 Intake Total 10 Balance 10 Result Diagrams: 07/23/19 04:38 07/23/19 04:38 Additional Labs: Accuchecks 07/23/19 10:32 POC Glucose 103 Microbiology 07/13/19 18:25 Urine clean catch Urine Culture - Final Radiology Reviewed by me: Yes (MRI brain - bilat lacunar infarcts(new), R compa infarct) EKG Reviewed by me: Yes (Tele - SR) Hospitalist ROS - Medication Medications: Active Medications Generic Name Dose Route Start Last Admin Trade Name Freq PRN Reason Stop Dose Admin Albuterol/Ipratropium 3 ml 07/23/19 11:00 07/24/19 08:21 Duoneb NEB 3 ml [id number] BRETT Administration Amlodipine Besylate 10 mg 07/23/19 09:00 07/23/19 11:41 Norvasc PO 10 mg DAILY BRETT Administration Aspirin 325 mg 07/23/19 09:00 07/23/19 11:41 Ecotrin PO 325 mg DAILY BRETT Administration Atorvastatin Calcium 40 mg 07/22/19 21:00 07/23/19 21:47 Lipitor PO Not Given HS BRETT Enoxaparin Sodium 40 mg 07/23/19 09:00 07/24/19 08:44 Lovenox SC 40 mg 0900 BRETT Administration Hydralazine HCl 10 mg 07/23/19 00:55 07/23/19 08:28 Apresoline SLOW IVP 10 mg Q6H PRN Administration SBP > 150 Sodium Chloride 1,000 mls @ 75 mls/hr 07/22/19 19:45 07/24/19 06:33 Normal Saline 0.9% IV 1,000 mls .[id number] BRETT Administration Ceftriaxone Sodium 2 gm/ 100 mls @ 200 mls/hr 07/23/19 18:00 07/23/19 17:35 Sodium Chloride IVPB 100 mls 1800 BRETT Administration Iron/Minerals/Multivitamins 1 tab 07/23/19 09:00 07/23/19 11:47 Theragran M PO Not Given DAILY BRETT Lisinopril 10 mg 07/23/19 09:00 07/23/19 11:46 Zestril PO 10 mg DAILY BRETT Administration Mometasone Furoate/Formoterol Fumar 2 puff 07/23/19 18:30 07/24/19 08:22 Dulera 200 Mcg/5 Mcg Inhaler INH 2 puff BID-RT BRETT Administration - Exam General - other findings: awake briefly, states one word responses Eye: PERRL Eye - other findings: tracks to midline but not R ENT: normocephalic atraumatic, no oropharyngeal lesions Neck: supple, symmetric, no JVD, no thyromegaly Heart: RRR, no murmur, no gallops, no rubs, normal peripheral pulses Respiratory - other findings: few coarse sounds bilat, transmitted upper airway sounds Gastrointestinal: soft, non-tender, non-distended, normal bowel sounds Extremities: no cyanosis, no clubbing, no edema Skin: normal turgor, no lesions Neurological - other findings: dysarthria, dysphagia Musculoskeletal: generalized weakness Psychiatric: oriented to person, somnolent, lethargic Hosp A/P (1) Acute CVA (cerebrovascular accident) Code(s): I63.9 - CEREBRAL INFARCTION, UNSPECIFIED Status: Acute Plan: New bilat lacunar infarcts, start Plavix plus ASA, stroke protocol, WEATHERSEAL TECHNICIAN recommending NPO currently (2) Acute metabolic encephalopathy Code(s): G93.41 - METABOLIC ENCEPHALOPATHY Status: Acute Plan: Persistent, secondary to #1, monitor for improvement (3) UTI (urinary tract infection) Status: Acute Plan: Suspected but no dominant organism, continue Rocephin IV (4) Expressive dysphasia Code(s): R47.02 - DYSPHASIA Status: Acute (5) COPD (chronic obstructive pulmonary disease) Status: Chronic Qualifiers: COPD type: chronic bronchitis Chronic bronchitis type: unspecified Qualified Code(s): J42 - Unspecified chronic bronchitis Plan: No exacerbation, Duonebs, supportive (6) HTN (hypertension) Code(s): I10 - ESSENTIAL (PRIMARY) HYPERTENSION Status: Chronic Qualifiers: Hypertension type: essential hypertension Qualified Code(s): I10 - Essential (primary) hypertension - Plan plan discussed w/ family, continue antibiotics, PT/OT, perinatal social worker, speech therapy, respiratory therapy, DVT proph w/SCDs Continue supportive mgmt Increase Rocephin 2gm IV daily Continue IVF's Add Dulera 2 puffs BID Add Plavix 75mg daily when taking po ASA 300mg NM daily until taking po Neurology consult appreciated Convert to inpt status Continue ASA/Lipitor
--- NOTE | 2019-07-24 11:38 | CON ---
DATE OF TELEMEDICINE CONSULTATION: 07/24/2019 CHIEF COMPLAINT: Acute stroke. HISTORY OF PRESENT ILLNESS: The patient was recently seen by me 1 week ago. She comes back with altered mental status along with difficulty with speech. Her daughter was in the room. She explained that on she was very talkative. They had visitors and she was in a good mood, but by Wednesday she became confused and she could not speak. They brought her in on Wednesday night and she was given a diagnosis of urinary infection and she had an MRI of the brain, which showed bilateral interval lacunar infarction, which is a new change. The patient herself is not able to give us much history today. PREVIOUS MEDICAL HISTORY: Significant for recent acute stroke along with hypertension, COPD, skin cancer, abdominal aortic aneurysm, status post repair. SOCIAL HISTORY: She lives with her daughter and her son is also nearby. She has good family support. She has history of tobacco use, but she has not smoked this past 3 days. No alcohol use. She uses assistive device mostly for her hip problems. She uses a cane. FAMILY HISTORY: The patient is adopted. ALLERGIES: SHE IS ALLERGIC TO METOPROLOL. REVIEW OF SYSTEMS: Her current review of systems difficult to obtain because of the patient's mental status. LABORATORY DATA: Current lab workup, white count 7.6, hemoglobin 13.2, hematocrit 38.4, platelet count 310, and her chemistry: Sodium 138, potassium 3.8, chloride 106, bicarb 23, BUN 15, creatinine 0.78, and liver functions within normal limits and her MRI of the brain is as reported earlier. She has not had a CT angio of the head and neck, and I have requested that. PHYSICAL EXAMINATION: VITAL SIGNS: Temperature 98, pulse 85, blood pressure 164/71, O2 sats 94, respiratory rate 16. GENERAL APPEARANCE: Well-built, well-nourished lady, who was walking with the physical therapist earlier, but when she was sitting during this telemedicine evaluation, she was very sleepy. She barely talked to us and was unable to get her speech out, but she was able to follow commands. CHEST: Some expiratory wheeze present. CARDIAC: S1, S2 heard. No murmurs. ABDOMEN: Soft. NEUROLOGICAL: Higher intellectual functions. As noted, she is not talking, but follows commands and is very cooperative. Cranial nerves 2 through 12: Normal extraocular movements. Pupils are reactive. No facial asymmetry noted. Tongue midline. Motor: Bulk normal, tone normal. Strength, 5/5 in all extremities except some proximal muscle weakness and tightness of the right shoulder muscle. Sensory: Difficult to assess. Cerebellar: Normal [id number], [id number]. IMPRESSION AND RECOMMENDATIONS: The patient is an 83-year-old lady with chronic obstructive pulmonary disease and prior history of stroke and hypertension. She has been altered as well. Her examination shows difficulty with her speech plus sleepiness, but intact motor system. Diagnosis is likely overlay of urinary infection along with some lacunar infarcts which are happening likely due to hypertension. Her daughter remarked that her blood pressure has been stable. At this time I will request a CT angiogram and add Plavix along with aspirin for better control of strokes. I explained to her this could be mostly atherosclerosis that is undergoing as a trigger factor for these events. I will see her again tomorrow. Job ID: [id number] MTDD
[2019-07-24] MEDS: Aspirin 300 MG Suppository PR SCH (13:00)
[2019-07-24] MEDS: Amlodipine 10 MG TAB PO SCH (13:09)
[2019-07-24] MEDS: Aspirin 325 mg Enteric Coated Tablet PO SCH (13:09)
[2019-07-24] MEDS: Lisinopril 10 MG TAB PO SCH (13:10)
[2019-07-24] MEDS: Multivitamin W/ Minerals 1 TAB PO SCH (13:10)
[2019-07-24] MEDS: cefTRIAXone\\ROCEPHIN 2 GM in Sodium Chloride 0.9% 100 ML IVPB SCH (17:42)
[2019-07-24] MEDS: Atorvastatin Calcium 40 MG TAB PO SCH (21:12)
[2019-07-24] MEDS: hydrALAZINE 20 MG/ML VIAL SLOW IVP PRN (23:50)
[2019-07-25] MEDS ORDERED: Labetalol HCl 100 MG/20 ML VIAL SLOW IVP SCH (02:15)
[2019-07-25] MEDS: hydrALAZINE 20 MG/ML VIAL SLOW IVP PRN ×2 (05:09→23:42)
[2019-07-25] MEDS: Sodium Chloride 0.9% 1,000 ML IV SCH ×2 (06:44→23:34)
[2019-07-25] MEDS: Mometasone/Formoterol 120 PUFF INHALER INH SCH ×2 (08:08→18:55)
[2019-07-25] MEDS: Aspirin 300 MG Suppository PR SCH (08:31)
[2019-07-25] MEDS: Enoxaparin Sodium 40 MG/0.4 ML SYRINGE SC SCH (08:31)
[2019-07-25] MEDS: Amlodipine 10 MG TAB PO SCH (10:34)
[2019-07-25] MEDS: Multivitamin W/ Minerals 1 TAB PO SCH (10:34)
[2019-07-25] MEDS: Lisinopril 10 MG TAB PO SCH (10:34)
[2019-07-25] MEDS: Clopidogrel Bisulfate 75 MG TAB PO SCH (10:34)
--- NOTE | 2019-07-25 12:06 | PRG ---
DATE OF TELEMEDICINE SERVICE: 07/25/2019 CHIEF COMPLAINT: Altered mental status. INTERVAL HISTORY: The patient is still unable to speak much during our visit, but the patient's family reports she is doing better compared to yesterday. Current labs, no new labs were available for review today and no new imaging studies either and I was told by our RN that some patient did have a CT angiogram at an outside facility and it was negative. IMPRESSION: The patient is an 83-year-old lady with microvascular ischemic disease. At this time, she is stable and continues to have some altered mental status. She has hypertension as her primary risk factor. RECOMMENDATIONS: Continue aspirin with Plavix for stroke prophylaxis. The patient might need senior care facility placement. Job ID: [id number] MTDD
--- NOTE | 2019-07-25 15:38 | EKG ---
Test Reason : Blood Pressure : / mmHG Vent. Rate : 071 BPM Atrial Rate : 071 BPM P-R Int : 124 ms QRS Dur : 074 ms QT Int : 406 ms P-R-T Axes : 067 024 010 degrees QTc Int : 441 ms Sinus rhythm with marked sinus arrhythmia Otherwise normal ECG Confirmed by KRYSTIN MUSTAFA DO ([id number]), book editor JANA CARVAJAL ([id number]) on 07/25/2019 3:38:11 PM Referred By: Confirmed By:KRYSTIN MUSTAFA DO
--- NOTE | 2019-07-25 17:03 | PDOC.HOSPP ---
- Subjective Encounter Date: 07/25/19 Encounter Time: 17:00 Subjective: f/u for acute CVA with lacunar infarcts noted. Currently on DAPT with ASA/ Plavix. Persistent confusion and minimally speaking per daughter. Taking small amounts of H2O/ice chips today. - Objective Vital Signs & Weight: Vital Signs (12 hours) Temp Pulse Pulse Pulse Resp BP BP 07/25/19 15:23 97.5 F L 95 20 07/25/19 14:31 103 H 20 07/25/19 11:38 98.0 F 98 16 07/25/19 11:20 97 89 151/81 H 07/25/19 10:57 66 18 07/25/19 10:34 105 H 163/78 H 07/25/19 08:34 98 149/75 H 07/25/19 08:22 97.9 F 105 H 20 07/25/19 08:17 07/25/19 08:08 106 H 20 07/25/19 05:09 88 163/78 H BP BP Pulse Ox 07/25/19 15:23 151/84 H 93 L 07/25/19 14:31 96 07/25/19 11:38 151/81 H 93 L 07/25/19 11:20 161/80 H 07/25/19 10:57 96 07/25/19 10:34 07/25/19 08:34 07/25/19 08:22 165/80 H 97 07/25/19 08:17 97 07/25/19 08:08 95 07/25/19 05:09 Weight Admit Weight 123 lb 6.4 oz Weight 123 lb 6.4 oz I&O: 07/24/19 07/25/19 07/26/19 06:59 06:59 06:59 Intake Total 1308 Output Total 875 Balance 433 Result Diagrams: 07/23/19 04:38 07/23/19 04:38 Additional Labs: Microbiology 07/13/19 18:25 Urine clean catch Urine Culture - Final EKG Reviewed by me: Yes (Tele - SR) Hospitalist ROS - Medication Medications: Active Medications Generic Name Dose Route Start Last Admin Trade Name Freq PRN Reason Stop Dose Admin Albuterol/Ipratropium 3 ml 07/23/19 11:00 07/25/19 14:31 Duoneb NEB 3 ml [id number] BRETT Administration Amlodipine Besylate 10 mg 07/23/19 09:00 07/25/19 10:34 Norvasc PO Not Given DAILY BRETT Aspirin 325 mg 07/23/19 09:00 07/24/19 13:09 Ecotrin PO Not Given DAILY BRETT Aspirin 300 mg 07/25/19 09:00 07/25/19 08:31 Aspirin VT 300 mg DAILY BRETT Administration Atorvastatin Calcium 40 mg 07/22/19 21:00 07/24/19 21:12 Lipitor PO Not Given HS BRETT Clopidogrel Bisulfate 75 mg 07/25/19 09:00 07/25/19 10:34 Plavix PO Not Given DAILY BRETT Enoxaparin Sodium 40 mg 07/23/19 09:00 07/25/19 08:31 Lovenox SC 40 mg 0900 BRETT Administration Hydralazine HCl 10 mg 07/23/19 00:55 07/25/19 05:09 Apresoline SLOW IVP 10 mg Q6H PRN Administration SBP > 150 Sodium Chloride 1,000 mls @ 75 mls/hr 07/22/19 19:45 07/25/19 06:44 Normal Saline 0.9% IV 1,000 mls .[id number] BRETT Administration Ceftriaxone Sodium 2 gm/ 100 mls @ 200 mls/hr 07/23/19 18:00 07/24/19 17:42 Sodium Chloride IVPB 100 mls 1800 BRETT Administration Iron/Minerals/Multivitamins 1 tab 07/23/19 09:00 07/25/19 10:34 Theragran M PO Not Given DAILY [facility] Lisinopril 10 mg 07/23/19 09:00 07/25/19 10:34 Zestril PO Not Given DAILY [facility] Mometasone Furoate/Formoterol Fumar 2 puff 07/23/19 18:30 07/25/19 08:08 Dulera 200 Mcg/5 Mcg Inhaler INH 2 puff BID-RT BRETT Administration - Exam General Appearance: awake alert General - other findings: non-verbal Eye: PERRL, anicteric sclera ENT: normocephalic atraumatic, no oropharyngeal lesions Neck: supple, symmetric, no JVD, no thyromegaly Heart: RRR, no murmur, no gallops, no rubs, normal peripheral pulses Respiratory: normal chest expansion Respiratory - other findings: few scattered coarse sounds bilat Gastrointestinal: soft, non-tender, non-distended, normal bowel sounds Extremities: no cyanosis, no clubbing, no edema Skin: normal turgor, no lesions Neurological: no new deficit Neurological - other findings: expressive aphasia, RUE weakness Musculoskeletal: generalized weakness Psychiatric: oriented to person Hosp A/P (1) Acute CVA (cerebrovascular accident) Code(s): I63.9 - CEREBRAL INFARCTION, UNSPECIFIED Status: Acute Plan: Continue ASA/Plavix/Lipitor, stroke protocol, SNF/Rehab options (2) Acute metabolic encephalopathy Code(s): G93.41 - METABOLIC ENCEPHALOPATHY Status: Acute Plan: Secondary to #1, supportive mgmt, family for re-orientation (3) UTI (urinary tract infection) Status: Acute Plan: Continue Rocephin 2gm IV daily (4) Expressive dysphasia Code(s): R47.02 - DYSPHASIA Status: Acute (5) COPD (chronic obstructive pulmonary disease) Status: Chronic Qualifiers: COPD type: chronic bronchitis Chronic bronchitis type: unspecified Qualified Code(s): J42 - Unspecified chronic bronchitis Plan: Continue general pulmonary support, no exacerbation (6) HTN (hypertension) Code(s): I10 - ESSENTIAL (PRIMARY) HYPERTENSION Status: Chronic Qualifiers: Hypertension type: essential hypertension Qualified Code(s): I10 - Essential (primary) hypertension - Plan plan discussed w/ family, continue antibiotics, PT/OT, social psychologist, speech therapy, respiratory therapy, DVT proph w/SCDs Continue supportive mgmt Increase Rocephin 2gm IV daily Continue IVF's Add Dulera 2 puffs BID Add Plavix 75mg daily when taking po ASA 300mg [place] daily until taking po Neurology consult appreciated Convert to inpt status Continue ASA/Plavix/Lipitor CM for Rehab options
[2019-07-25] MEDS: cefTRIAXone\\ROCEPHIN 2 GM in Sodium Chloride 0.9% 100 ML IVPB SCH (17:21)
[2019-07-25] MEDS: Atorvastatin Calcium 40 MG TAB PO SCH (23:33)
[2019-07-26] MEDS: Mometasone/Formoterol 120 PUFF INHALER INH SCH ×2 (06:49→18:32)
[2019-07-26] MEDS: Aspirin 300 MG Suppository PR SCH (08:29)
[2019-07-26] MEDS: hydrALAZINE 20 MG/ML VIAL SLOW IVP PRN (08:30)
[2019-07-26] MEDS: Enoxaparin Sodium 40 MG/0.4 ML SYRINGE SC SCH (08:31)
[2019-07-26] MEDS: Amlodipine 10 MG TAB PO SCH (08:32)
[2019-07-26] MEDS: Clopidogrel Bisulfate 75 MG TAB PO SCH (08:32)
[2019-07-26] MEDS: Lisinopril 10 MG TAB PO SCH (08:33)
[2019-07-26] MEDS: Multivitamin W/ Minerals 1 TAB PO SCH (08:33)
--- NOTE | 2019-07-26 14:25 | PDOC.HOSPP ---
- Subjective Encounter Date: 07/26/19 Encounter Time: 14:20 Subjective: f/u for bilat lacunar infarcts with dysarthria, weakness. More alert overall. Cleared to take po per LGSW. - Objective Vital Signs & Weight: Vital Signs (12 hours) Temp Pulse Pulse Pulse Resp BP BP 07/26/19 11:44 98.4 F 104 H 18 07/26/19 09:14 105 H 109 H 150/65 H 07/26/19 08:33 155/87 H 07/26/19 08:32 98 07/26/19 08:30 98 155/87 H 07/26/19 08:28 07/26/19 08:00 99 F 98 18 07/26/19 06:47 95 16 07/26/19 06:04 07/26/19 04:31 98.7 F 104 H 18 BP BP Pulse Ox 07/26/19 11:44 152/70 H 93 L 07/26/19 09:14 163/75 H 07/26/19 08:33 07/26/19 08:32 07/26/19 08:30 07/26/19 08:28 93 L 07/26/19 08:00 155/87 H 93 L 07/26/19 06:47 94 L 07/26/19 06:04 162/78 H 07/26/19 04:31 180/74 H 94 L Weight Admit Weight 123 lb 6.4 oz Weight 123 lb 6.4 oz I&O: 07/25/19 07/26/19 07/27/19 06:59 06:59 06:59 Intake Total 1308 Output Total 004 310 218 Balance 303 -477 -953 Result Diagrams: 07/23/19 04:38 07/23/19 04:38 Additional Labs: Microbiology 07/13/19 18:25 Urine clean catch Urine Culture - Final EKG Reviewed by me: Yes (Tele - SR) Hospitalist ROS - Medication Medications: Active Medications Generic Name Dose Route Start Last Admin Trade Name Freq PRN Reason Stop Dose Admin Albuterol/Ipratropium 3 ml 07/23/19 11:00 07/26/19 06:47 Duoneb NEB 3 ml [id number] BRETT Administration Amlodipine Besylate 10 mg 07/23/19 09:00 07/26/19 08:32 Norvasc PO Not Given DAILY BRETT Aspirin 325 mg 07/23/19 09:00 07/24/19 13:09 Ecotrin PO Not Given DAILY [facility] Aspirin 300 mg 07/25/19 09:00 07/26/19 08:29 Aspirin [place] 300 mg DAILY [facility] Administration Atorvastatin Calcium 40 mg 07/22/19 21:00 07/25/19 23:33 Lipitor PO Not Given HS [facility] Clopidogrel Bisulfate 75 mg 07/25/19 09:00 07/26/19 08:32 Plavix PO Not Given DAILY [facility] Enoxaparin Sodium 40 mg 07/23/19 09:00 07/26/19 08:31 Lovenox SC 40 mg 0900 BRETT Administration Hydralazine HCl 10 mg 07/23/19 00:55 07/26/19 08:30 Apresoline SLOW IVP 10 mg Q6H PRN Administration SBP > 150 Sodium Chloride 1,000 mls @ 75 mls/hr 07/22/19 19:45 07/25/19 23:34 Normal Saline 0.9% IV 1,000 mls .[id number] BRETT Administration Ceftriaxone Sodium 2 gm/ 100 mls @ 200 mls/hr 07/23/19 18:00 07/25/19 17:21 Sodium Chloride IVPB 100 mls 1800 BRETT Administration Iron/Minerals/Multivitamins 1 tab 07/23/19 09:00 07/26/19 08:33 Theragran M PO Not Given DAILY [facility] Lisinopril 10 mg 07/23/19 09:00 07/26/19 08:33 Zestril PO Not Given DAILY [facility] Mometasone Furoate/Formoterol Fumar 2 puff 07/23/19 18:30 07/26/19 06:49 Dulera 200 Mcg/5 Mcg Inhaler INH 2 puff BID-RT BRETT Administration - Exam General Appearance: NAD, awake alert Eye: PERRL, anicteric sclera ENT: normocephalic atraumatic, no oropharyngeal lesions Neck: supple, symmetric, no JVD, no thyromegaly Heart: RRR, no murmur, no gallops, no rubs, normal peripheral pulses Respiratory: CTAB, no wheezes, no rales, no ronchi Gastrointestinal: soft, non-tender, non-distended, normal bowel sounds Extremities: no cyanosis, no clubbing, no edema Skin: normal turgor, no lesions Neurological: no new deficit Neurological - other findings: expressive dysphasia Musculoskeletal: generalized weakness Psychiatric: oriented to person Hosp A/P (1) Acute CVA (cerebrovascular accident) Code(s): I63.9 - CEREBRAL INFARCTION, UNSPECIFIED Status: Acute Plan: Continue DAPT with ASA/Plavix, continue Lipitor (2) Acute metabolic encephalopathy Code(s): G93.41 - METABOLIC ENCEPHALOPATHY Status: Acute Plan: Improved, continue to monitor for clinical improvement (3) UTI (urinary tract infection) Status: Acute Plan: Suspected, continue Rocephin another 24h then convert to po option (4) Expressive dysphasia Code(s): R47.02 - DYSPHASIA Status: Acute Plan: Improved, continue LGSW (5) COPD (chronic obstructive pulmonary disease) Status: Chronic Qualifiers: COPD type: chronic bronchitis Chronic bronchitis type: unspecified Qualified Code(s): J42 - Unspecified chronic bronchitis (6) HTN (hypertension) Code(s): I10 - ESSENTIAL (PRIMARY) HYPERTENSION Status: Chronic Qualifiers: Hypertension type: essential hypertension Qualified Code(s): I10 - Essential (primary) hypertension - Plan plan discussed w/ family, continue antibiotics, PT/OT, social service coordinator, speech therapy, out of bed/ambulate, DVT proph w/SCDs Continue supportive mgmt Increase Rocephin 2gm IV daily another 24h Saline lock IVF's Add Dulera 2 puffs BID Add Plavix 75mg daily when taking po ASA 300mg [place] daily until taking po Neurology consult appreciated Convert to inpt status Continue ASA/Plavix/Lipitor CM for Rehab options
[2019-07-26] MEDS ORDERED: Lisinopril 10 MG TAB PO SCH (14:45)
[2019-07-26] MEDS ORDERED: Amlodipine 10 MG TAB PO SCH (14:45)
[2019-07-26] MEDS ORDERED: Clopidogrel Bisulfate 75 MG TAB PO SCH (14:45)
[2019-07-26] MEDS: cefTRIAXone\\ROCEPHIN 2 GM in Sodium Chloride 0.9% 100 ML IVPB SCH (17:47)
[2019-07-26] MEDS: Atorvastatin Calcium 40 MG TAB PO SCH (22:21)
[2019-07-27] MEDS: Acetaminophen 325 MG TAB PO PRN ×2 (04:07→09:37)
[2019-07-27] MEDS: Mometasone/Formoterol 120 PUFF INHALER INH SCH ×2 (07:57→19:00)
[2019-07-27] MEDS: Multivitamin W/ Minerals 1 TAB PO SCH (09:26)
[2019-07-27] MEDS: Amlodipine 10 MG TAB PO SCH (09:26)
[2019-07-27] MEDS: Clopidogrel Bisulfate 75 MG TAB PO SCH (09:26)
[2019-07-27] MEDS: Aspirin 325 mg Enteric Coated Tablet PO SCH (09:26)
[2019-07-27] MEDS: Enoxaparin Sodium 40 MG/0.4 ML SYRINGE SC SCH (09:27)
[2019-07-27] MEDS: Lisinopril 10 MG TAB PO SCH (09:27)
--- NOTE | 2019-07-27 15:37 | PDOC.HOSPP ---
- Subjective Encounter Date: 07/27/19 Encounter Time: 15:35 Subjective: f/u for CVA with expressive dysphasia and general weakness. Feels better overall and more alert. - Objective Vital Signs & Weight: Vital Signs (12 hours) Temp Pulse Pulse Pulse Resp BP BP 07/27/19 15:03 100 20 07/27/19 11:45 98.6 F 89 18 07/27/19 11:35 100 20 07/27/19 11:11 95 89 160/83 H 07/27/19 09:27 162/86 H 07/27/19 09:26 83 162/86 H 07/27/19 08:00 07/27/19 07:59 84 20 07/27/19 07:57 82 20 07/27/19 07:56 98.3 F 91 18 07/27/19 03:39 100.1 F H 95 16 BP BP Pulse Ox 07/27/19 15:03 95 07/27/19 11:45 167/71 H 97 07/27/19 11:35 93 L 07/27/19 11:11 167/71 H 07/27/19 09:27 07/27/19 09:26 07/27/19 08:00 94 L 07/27/19 07:59 94 L 07/27/19 07:57 94 L 07/27/19 07:56 162/86 H 94 L 07/27/19 03:39 164/87 H 90 L Weight Admit Weight 123 lb 6.4 oz Weight 123 lb 6.4 oz I&O: 07/26/19 07/27/19 07/28/19 06:59 06:59 06:59 Output Total 425 750 Balance -425 -750 Result Diagrams: 07/23/19 04:38 07/23/19 04:38 Additional Labs: Microbiology 07/13/19 18:25 Urine clean catch Urine Culture - Final EKG Reviewed by me: Yes (Tele - SR) Hospitalist ROS - Medication Medications: Active Medications Generic Name Dose Route Start Last Admin Trade Name Freq PRN Reason Stop Dose Admin Acetaminophen 650 mg 07/22/19 19:39 07/27/19 09:37 Tylenol PO 650 mg Q4H PRN Administration Headache/Fever/Mild Pain (1-3) Albuterol/Ipratropium 3 ml 07/23/19 11:00 07/27/19 15:03 Duoneb NEB 3 ml [id number] BRETT Administration Amlodipine Besylate 10 mg 07/23/19 09:00 07/27/19 09:26 Norvasc PO 10 mg DAILY BRETT Administration Aspirin 325 mg 07/27/19 09:00 07/27/19 09:26 Ecotrin PO 325 mg DAILY BRETT Administration Atorvastatin Calcium 40 mg 07/22/19 21:00 07/26/19 22:21 Lipitor PO 40 mg HS BRETT Administration Clopidogrel Bisulfate 75 mg 07/25/19 09:00 07/27/19 09:26 Plavix PO 75 mg DAILY BRETT Administration Enoxaparin Sodium 40 mg 07/23/19 09:00 07/27/19 09:27 Lovenox SC 40 mg 0900 BRETT Administration Hydralazine HCl 10 mg 07/23/19 00:55 07/26/19 08:30 Apresoline SLOW IVP 10 mg Q6H PRN Administration SBP > 150 Iron/Minerals/Multivitamins 1 tab 07/23/19 09:00 07/27/19 09:26 Theragran M PO 1 tab DAILY BRETT Administration Levofloxacin 500 mg 07/27/19 06:00 07/27/19 05:31 Levaquin PO 500 mg 0600 BRETT Administration Lisinopril 10 mg 07/23/19 09:00 07/27/19 09:27 Zestril PO 10 mg DAILY BRETT Administration Mometasone Furoate/Formoterol Fumar 2 puff 07/23/19 18:30 07/27/19 07:57 Dulera 200 Mcg/5 Mcg Inhaler INH 2 puff BID-RT BRETT Administration - Exam General Appearance: NAD, awake alert Eye: PERRL, anicteric sclera ENT: normocephalic atraumatic, no oropharyngeal lesions Neck: supple, symmetric, no JVD, no thyromegaly Heart: RRR, no murmur, no gallops, no rubs Respiratory: CTAB, no wheezes, no rales Gastrointestinal: soft, non-tender, non-distended, normal bowel sounds, no palpable masses Extremities: no cyanosis, no clubbing, no edema Skin: normal turgor, no lesions Neurological - other findings: RUE weakness, expressive dysphasia Psychiatric: oriented to person, oriented to place Hosp A/P (1) Acute CVA (cerebrovascular accident) Code(s): I63.9 - CEREBRAL INFARCTION, UNSPECIFIED Status: Acute Plan: Continue DAPT with ASA/Plavix (2) Acute metabolic encephalopathy Code(s): G93.41 - METABOLIC ENCEPHALOPATHY Status: Acute Plan: Improving, supportive mgmt (3) UTI (urinary tract infection) Status: Acute Plan: Continue Levaquin 500mg po daily x 5 days (4) Expressive dysphasia Code(s): R47.02 - DYSPHASIA Status: Acute Plan: Persistent (5) COPD (chronic obstructive pulmonary disease) Status: Chronic Qualifiers: COPD type: chronic bronchitis Chronic bronchitis type: unspecified Qualified Code(s): J42 - Unspecified chronic bronchitis (6) HTN (hypertension) Code(s): I10 - ESSENTIAL (PRIMARY) HYPERTENSION Status: Chronic Qualifiers: Hypertension type: essential hypertension Qualified Code(s): I10 - Essential (primary) hypertension - Plan plan discussed w/ family, continue antibiotics, PT/OT, social worker clinical, speech therapy, out of bed/ambulate, DVT proph w/SCDs Continue supportive mgmt Saline lock IVF's Add Dulera 2 puffs BID Add Plavix 75mg daily when taking po ASA 81mg po daily Neurology consult appreciated Continue ASA/Plavix/Lipitor D/C to inpt rehab 07/28/19
[2019-07-27] MEDS: Atorvastatin Calcium 40 MG TAB PO SCH (21:14)
[2019-07-28] MEDS: Mometasone/Formoterol 120 PUFF INHALER INH SCH (07:41)
[2019-07-28] MEDS: Amlodipine 10 MG TAB PO SCH (08:00)
[2019-07-28] MEDS: Aspirin 325 mg Enteric Coated Tablet PO SCH (08:01)
[2019-07-28] MEDS: Clopidogrel Bisulfate 75 MG TAB PO SCH (08:01)
[2019-07-28] MEDS: Enoxaparin Sodium 40 MG/0.4 ML SYRINGE SC SCH (08:02)
[2019-07-28] MEDS: Multivitamin W/ Minerals 1 TAB PO SCH (08:02)
[2019-07-28] MEDS: Lisinopril 10 MG TAB PO SCH (08:02)
--- NOTE | 2019-07-28 10:45 | PDOC.HOSPP ---
- Subjective Encounter Date: 07/28/19 Encounter Time: 07:30 Subjective: Expresses no complaint.. - Objective Vital Signs & Weight: Vital Signs (12 hours) Temp Pulse Resp BP BP Pulse Ox 07/28/19 08:02 179/93 H 07/28/19 08:00 86 179/93 H 07/28/19 07:44 89 L 07/28/19 07:42 98 F 93 16 179/93 H 91 L 07/28/19 07:41 78 20 89 L 07/28/19 07:20 93 L 07/28/19 04:00 98.1 F 95 16 156/102 H 90 L 07/28/19 00:00 98.1 F 96 16 150/89 H 93 L Weight Admit Weight 123 lb 6.4 oz Weight 123 lb 6.4 oz I&O: 07/27/19 07/28/19 07/29/19 06:59 06:59 06:59 Intake Total 300 Output Total 750 600 Balance -750 -600 300 Result Diagrams: 07/23/19 04:38 07/23/19 04:38 Hospitalist ROS - Medication Medications: Active Medications Generic Name Dose Route Start Last Admin Trade Name Freq PRN Reason Stop Dose Admin Acetaminophen 650 mg 07/22/19 19:39 07/27/19 09:37 Tylenol PO 650 mg Q4H PRN Administration Headache/Fever/Mild Pain (1-3) Albuterol/Ipratropium 3 ml 07/23/19 11:00 07/28/19 07:42 Duoneb NEB 3 ml [id number] BRETT Administration Amlodipine Besylate 10 mg 07/23/19 09:00 07/28/19 08:00 Norvasc PO 10 mg DAILY BRETT Administration Aspirin 325 mg 07/27/19 09:00 07/28/19 08:01 Ecotrin PO 325 mg DAILY BRETT Administration Atorvastatin Calcium 40 mg 07/22/19 21:00 07/27/19 21:14 Lipitor PO 40 mg HS BRETT Administration Clopidogrel Bisulfate 75 mg 07/25/19 09:00 07/28/19 08:01 Plavix PO 75 mg DAILY BRETT Administration Enoxaparin Sodium 40 mg 07/23/19 09:00 07/28/19 08:02 Lovenox SC 40 mg 0900 BRETT Administration Hydralazine HCl 10 mg 07/23/19 00:55 07/26/19 08:30 Apresoline SLOW IVP 10 mg Q6H PRN Administration SBP > 150 Iron/Minerals/Multivitamins 1 tab 07/23/19 09:00 07/28/19 08:02 Theragran M PO 1 tab DAILY BRETT Administration Levofloxacin 500 mg 07/27/19 06:00 07/28/19 05:39 Levaquin PO 500 mg 0600 BRETT Administration Lisinopril 10 mg 07/23/19 09:00 07/28/19 08:02 Zestril PO 10 mg DAILY BRETT Administration Mometasone Furoate/Formoterol Fumar 2 puff 07/23/19 18:30 07/28/19 07:41 Dulera 200 Mcg/5 Mcg Inhaler INH 2 puff BID-RT BRETT Administration - Exam General Appearance: NAD Eye: anicteric sclera Neck: no JVD Heart: RRR Respiratory: CTAB Gastrointestinal: soft Extremities: no edema Neurological - other findings: Left hemiparesis.. Hosp A/P (1) UTI (urinary tract infection) Status: Acute (2) HTN (hypertension) Code(s): I10 - ESSENTIAL (PRIMARY) HYPERTENSION Status: Chronic Qualifiers: Hypertension type: essential hypertension Qualified Code(s): I10 - Essential (primary) hypertension (3) Acute CVA (cerebrovascular accident) Code(s): I63.9 - CEREBRAL INFARCTION, UNSPECIFIED Status: Acute (4) COPD exacerbation Code(s): J44.1 - CHRONIC OBSTRUCTIVE PULMONARY DISEASE W (ACUTE) EXACERBATION Status: Acute (5) Dysarthria Code(s): R47.1 - DYSARTHRIA AND ANARTHRIA Status: Acute - Plan Seen by neurology. On antiplatelets, statin.. Awaiting rehab transfer. On levaquin for uti.
[2019-07-28 11:50] VITALS: TEMP 98.5
[2019-07-28 11:58] VITALS: BP 151/85
--- NOTE | 2019-07-28 12:32 | DIS ---
DATE OF ADMISSION: 07/23/2019 DATE OF DISCHARGE: 07/28/2019 PRIMARY DIAGNOSES: Metabolic encephalopathy, urinary tract infection, hypertension, and recent sub lacunar infarct involving the compa. DISCHARGE DIAGNOSES: Metabolic encephalopathy, urinary tract infection, hypertension, and recent sub lacunar infarct involving the compa. CONSULTS: Dr. Tory Sanchez. PROCEDURES: Head CT, chest x-ray, EKG, brain MRI. COURSE OF HOSPITALIZATION: Uncomplicated. Responded well to management. The patient is clinically stable at this time being discharged to rehab. DISCHARGE MEDICATIONS: Please see discharge medication reconciliation sheet. FOLLOWUP: The patient is to follow up with her primary care physician and also with Neurology after discharge from rehab. For 2 days physical examination, please refer to the patient's medical record progress note section. DISCHARGE TIME: 32 minutes. Job ID: [id number]
== END 2019-07-28 15:02 | DRG 689 ==
LOC: ERS 14:49 → 2SE 19:42 → OBSVTOIN 07-23 11:08
PROVIDERS: ADMIT Internal Medicine; ATTEND Internal Medicine
DX: N39.0 Urinary tract infection, site not specified (principal); G93.41 Metabolic encephalopathy; I10 Essential (primary) hypertension; J44.9 Chronic obstructive pulmonary disease, unspecified; R13.10 Dysphagia, unspecified; F17.210 Nicotine dependence, cigarettes, uncomplicated; R29.810 Facial weakness; Z86.73 Personal history of transient ischemic attack (TIA), and cerebral infarction without residual deficits
CPT/HCPCS: 36415; 36416; 70450; 70553; 71045; 80048; 80053; 81003; 81015; 82550; 84484; 85025; 85610; 85730; 93005; 96365; J0360; J0696; J1650; J3490; J7620